=== PATIENT | female | born 1990 | race Caucasian/White ===

== ENCOUNTER 2016-11-30 08:14 | Inpatient (IN) | payer BC ==
[2016-11-30] MEDS ORDERED: Sodium Chloride 0.9% 10 ML Syringe FLUSH PRN (10:03)
[2016-11-30] MEDS ORDERED: Ondansetron 4 MG/2 ML SDV IVPUSH PRN (10:03)
[2016-11-30] MEDS ORDERED: Oxytocin/Lactated Ringers 10 UNIT/1,000 ML BAG IV SCH ×2 (10:15)
[2016-11-30] MEDS: Misoprostol 25 MCG (1/4 of 100 MCG) Tab VAG SCH ×3 (11:05→19:17)
--- NOTE | 2016-11-30 12:05 | US ---
Biophysical profile: Multiple real-time images were obtained transabdominally. Comparison: Previous obstetrical ultrasounds are available, most recent is 07/23/16. Dates: LMP: LMP given as 02/25/16, KYRA 12/01/16, gestational age 39 weeks 6 days Current ultrasound: KYRA 12/10/16, gestational age 38 weeks 4 days Earliest ultrasound (05/07/16): KYRA 11/26/16, gestational age 40 weeks 4 days presentation: Cephalic Placenta: Posterior Amniotic fluid: YOVANI 9.37 cm Measurements: (Measurements felt to be less than optimal in accuracy due to late gestational age) BPD: 9.12 cm - 37 weeks 0 days Head circumference: 33.06 cm - 36 weeks 5 days Abdominal circumference: 37.97 cm - 42 weeks 0 days Femur length: 7.27 cm - 37 weeks 2 days Estimated weight: 3907 g (8 lbs. 10 oz.), estimated weight at the 90th percentile for age by LMP Heart rate: 146 bpm Cervical length: 3.0 cm Growth curves: Growth variable around the mean percentile. Growth is felt to be appropriate from previous exam. Biophysical profile: movement 2, breathing movement 2, tone 0, amniotic fluid 2 Impression: 1. Single intrauterine fetus currently cephalic in presentation. Dates as noted above. Most accurate dates felt to be from earlier ultrasound and LMP. Estimated weight as noted above. 2. growth appropriate from prior exam. 3. 6 out of 8 on biophysical profile. Diagnostic code #5
--- NOTE | 2016-11-30 14:34 | PCM.PREANE ---
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 Respiratory: Reports: no symptoms Cardiovascular: Reports: no symptoms GI: Reports: no symptoms Other: Reports: none - PHYSICAL ASSESSMENT O2 Sat by Pulse Oximetry: 94 RR: 15 Vital Signs: Last Vital Signs Temp 36.8 C 11/30/16 08:43 Pulse 82 11/30/16 08:43 Resp 15 11/30/16 08:43 BP 124/84 11/30/16 08:43 Pulse Ox 94 L 11/30/16 08:43 Height: 1.57 m Weight: 93.44 kg NPO Status Date: 11/30/16 NPO Status Time: 12:00 Mental Status: alert & oriented x3 Airway Class: Mallampati = 1 Dentition: Reports: normal dentition Thyro-Mental Finger Breadths: 3 Mouth Opening Finger Breadths: 3 ROM/Head Extension: full Respiratory Status: lungs clear to auscultation bilaterally Cardiovascular Status: regular rate & rhythm, normal S1, S2, no murmur, blood pressure WNL - LAB Values: Laboratory Last Values WBC 9.91 K/mm3 (3.98-10.04) 11/30/16 10:36 RBC 4.30 M/mm3 (3.98-5.22) 11/30/16 10:36 Hgb 12.2 gm/L (11.2-15.7) 11/30/16 10:36 Hct 37.4 % (34.1-44.9) 11/30/16 10:36 MCV 87.0 fl (79.4-94.8) 11/30/16 10:36 MCH 28.4 pg (25.6-32.2) 11/30/16 10:36 MCHC 32.6 g/dl (32.2-35.5) 11/30/16 10:36 RDW Std Deviation 49.0 fL (36.4-46.3) H 11/30/16 10:36 Plt Count 223 K/mm3 (182-369) 11/30/16 10:36 MPV 10.8 fl (9.4-12.3) 11/30/16 10:36 Neut % (Auto) 63.7 % (34.0-71.1) 11/30/16 10:36 Lymph % (Auto) 24.9 % (19.3-51.7) 11/30/16 10:36 [place] % (Auto) 10.0 % (4.7-12.5) 11/30/16 10:36 Eos % (Auto) 0.9 (0.7-5.8) 11/30/16 10:36 Baso % (Auto) 0.2 % (0.1-1.2) 11/30/16 10:36 Neut # 6.31 K/mm3 (1.56-6.13) H 11/30/16 10:36 Lymph # 2.47 K/mm3 (1.18-3.74) 11/30/16 10:36 [place] # 0.99 K/mm3 (0.24-0.36) H 11/30/16 10:36 Eos # 0.09 K/mm3 (0.04-0.36) 11/30/16 10:36 Baso # 0.02 K/mm3 (0.01-0.08) 11/30/16 10:36 - ALLERGIES Allergies/Adverse Reactions: Allergies Allergy/AdvReac Type Severity Reaction Status Date / Time loratadine [From Claritin] Allergy Swelling Verified 11/30/16 08:42 Penicillins Allergy Rash Verified 11/30/16 08:42 - BLOOD Blood Available: No Product(s) Available: None - ANESTHESIA PLAN Preop Beta Kisha: No Anesthesia Type Planned: epidural - ACKNOWLEDGEMENTS Pt an appropriate candidate for the planned anesthesia: Yes Alternatives and risks of anesthesia discussed w pt/guardian: Yes Pt/Guardian understands and agree with anesthesia plan: Yes PreAnesthesia Questionnaire - Past Health History Medical/Surgical History: Denies 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 Smoking Status *Q: Never Smoker Tobacco Use Within Last Twelve Months: No Recreational Drug Use History: No - HOME MEDS Home Medications: Home Meds Cetirizine HCl [Zyrtec] 10 mg PO DAILY 11/30/16 [History] Pnv No.122/Iron/Folic Acid [ Multi Tablet] 1 tab PO DAILY 11/30/16 [ History] - CURRENT (IN HOUSE) MEDS Current Meds: Current Medications Lactated Ringer's (Ringers, Lactated) 1,000 mls @ 100 mls/hr IV ASDIRECTED WON Oxytocin/Lactated Ringer's (Pitocin In Lr 10 Units/1,000 Ml) 10 unit in 1,000 mls @ 500 mls/hr IV TITRATE WON PRN Reason: Protocol Oxytocin/Lactated Ringer's (Pitocin In Lr 10 Units/1,000 Ml) 10 unit in 1,000 mls @ 12 mls/hr IV TITRATE WON; 2 MUNITS/MIN PRN Reason: Protocol Misoprostol (Cytotec) 25 mcg VAG Q4H WON Last Admin: 11/30/16 11:05 Dose: 25 mcg Ondansetron HCl (Zofran) 4 mg IVPUSH Q4H PRN PRN Reason: Nausea/Vomiting Sodium Chloride (Saline Flush) 10 ml FLUSH ASDIRECTED PRN PRN Reason: Keep Vein Open
--- NOTE | 2016-11-30 17:10 | PCM.LDHP ---
L&D History of Present Illness - General Date of Service: 11/30/16 Admit Problem/Dx: Patient Status Order with Admit Dx/Problem 11/30/16 08:43 Patient Status [ADT] Routine Patient Status: Refer to Observation Admission Diagnosis/Problem: Reason for Admit: induction of labor Nurse Unit Type: Labor and Delivery Admitting Physician: Alec Burleson Attending Physician: Alec Burleson Admission Diagnosis/Problem Admission Diagnosis/Problem Source of Information: Patient History Limitations: Reports: No limitations - History of Present Illness Introduction:: 25-year-old, G1, P0000, KYRA November 29, 2016 estimated gestational age 40 weeks one day presented to labor and delivery having fallen on the ice and hit her tailbone. No severe pain. Patient was scheduled for induction on Tuesday , December 01/2017 will begin induction. Today. Group B strep is negative. Blood type O positive, antibody screen negative, negative, GC and Chlamydia negative, Pap test, immune, rubella titer nonreactive, serology negative, hepatitis B surface antigen, and HIV at 28 weeks one hour OB glucose screen 80. Hemoglobin Vicryl. 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 Para: 0 (0000) Social & Family History - Family History Family Medical History: Noncontributory - Tobacco Use Smoking Status *Q: Never Smoker - Caffeine Use Caffeine Use: Reports: Soda - Recreational Drug Use Recreational Drug Use: No H&P Review of Systems - Review of Systems: Review Of Systems: See Below General: Reports: no symptoms HEENT: Reports: no symptoms Pulmonary: Reports: no symptoms Cardiovascular: Reports: no symptoms Gastrointestinal: Reports: No symptoms Genitourinary: Reports: no symptoms Musculoskeletal: Reports: no symptoms Skin: Reports: no symptoms Psychiatric: Reports: no symptoms Neurological: Reports: no symptoms Hematologic/Lymphatic: Reports: no symptoms Immunologic: Reports: no symptoms L&D Exam - Exam Exam: See Below - Vital Signs Vital Signs: Last Vital Signs Temp 98.3 F 11/30/16 08:43 Pulse 82 11/30/16 08:43 Resp 15 11/30/16 14:34 BP 124/84 11/30/16 08:43 Pulse Ox 94 L 11/30/16 14:34 Weight: 206 lb - OB Specific Fundal Height in cm: 38 Contraction Intensity: Mild movement: active heart tones: present heart tones per min: 140 Heart Rate (FHR) Variability: Moderate (6-25 bmp) Presentation: Vertex - Ackerman Score Ackerman Score Cervix Position: Posterior Ackerman Score Consistency: Soft Ackerman Score Effacement: 0-30% Ackerman Score Dilation: Closed Ackerman Score 's Station: -3 Ackerman Score Total: 2 - Exam General: alert, oriented HEENT: Mucosa moist & pink Neck: supple, trachea midline Lungs: Clear to auscultation, Normal respiratory effort Cardiovascular: regular rate, regular rhythm Abdomen: normal bowel sounds, soft Genitourinary: Normal external exam Back Exam: normal inspection, full range of motion Extremities: normal inspection Skin: warm, dry Psychiatric: alert, normal affect, normal mood - Patient Data Lab Results last 24 hrs: Laboratory Results - last 24 hr 11/30/16 Range/Units 10:36 WBC 9.91 (3.98-10.04) K/mm3 RBC 4.30 (3.98-5.22) M/mm3 Hgb 12.2 (11.2-15.7) gm/L Hct 37.4 (34.1-44.9) % MCV 87.0 (79.4-94.8) fl MCH 28.4 (25.6-32.2) pg MCHC 32.6 (32.2-35.5) g/dl RDW Std Deviation 49.0 H (36.4-46.3) fL Plt Count 223 (182-369) K/mm3 MPV 10.8 (9.4-12.3) fl Neut % (Auto) 63.7 (34.0-71.1) % Lymph % (Auto) 24.9 (19.3-51.7) % [place] % (Auto) 10.0 (4.7-12.5) % Eos % (Auto) 0.9 (0.7-5.8) Baso % (Auto) 0.2 (0.1-1.2) % Neut # 6.31 H (1.56-6.13) K/mm3 Lymph # 2.47 (1.18-3.74) K/mm3 [place] # 0.99 H (0.24-0.36) K/mm3 Eos # 0.09 (0.04-0.36) K/mm3 Baso # 0.02 (0.01-0.08) K/mm3 Result Diagrams: 11/30/16 10:36 - Problem List (1) 40 weeks gestation of SNOMED Code(s): 11435761 ICD Code: Z3A.40 - 40 WEEKS GESTATION OF Status: Acute Current Visit: Yes (2) Fall due to ice or snow SNOMED Code(s): 351179597 ICD Code: W00.9XXA - UNSPECIFIED FALL DUE TO ICE AND SNOW, INITIAL ENCOUNTER Status: Acute Current Visit: Yes Qualifiers: Encounter type: initial encounter Qualified Code(s): W00.9XXA - Unspecified fall due to ice and snow, initial encounter (3) Macrosomia affecting management of mother in third trimester, single gestation SNOMED Code(s): 93722796, 22767773, 344659661 ICD Code: O36.63X0 - MATERNAL CARE FOR EXCESS GROWTH, THIRD TRIMESTER, UNSP Status: Acute Current Visit: Yes Problem List Initiated/Reviewed/Updated: No Orders Last 24hrs: Active Orders 24 hr Category Date Time Status Patient Status [ADT] Routine ADT 11/30/16 08:43 Active Activity as Tolerated [RC] PFP Care 11/30/16 10:04 Active Communication Order [RC] ASDIRECTED Care 11/30/16 10:04 Active Notify Provider [RC] PFP Care 11/30/16 10:04 Active Notify Provider [RC] PRN Care 11/30/16 10:04 Active Peripheral IV Care [RC] . DIRECTED Care 11/30/16 10:04 Active Vital Signs [RC] 04,12,20 Care 11/30/16 10:04 Active Regular Diet [DIET] Diet 11/30/16 Lunch Active TYPE AND SCREEN [BBK] Routine Lab 11/30/16 17:02 Ordered Lactated Ringers [Ringers, Lactated] 1,000 ml Med 11/30/16 10:15 Active IV ASDIRECTED Misoprostol [Cytotec] Med 11/30/16 11:00 Active 25 mcg VAG Q4H Misoprostol [Cytotec] Med 11/30/16 23:00 Ordered 25 mcg VAG Q4H Ondansetron [Zofran] Med 11/30/16 10:03 Active 4 mg IVPUSH Q4H PRN Oxytocin/Lactated Ringers [Pitocin in LR 10 Units/1,000 Med 11/30/16 10:15 Active ML] 10 unit in 1,000 ml IV TITRATE Oxytocin/Lactated Ringers [Pitocin in LR 10 Units/1,000 Med 11/30/16 10:15 Active ML] 10 unit in 1,000 ml IV TITRATE Sodium Chloride 0.9% [Saline Flush] Med 11/30/16 10:03 Active 10 ml FLUSH ASDIRECTED PRN hydrOXYzine HCl [Atarax] Med 11/30/16 21:00 Ordered 50 mg PO BEDTIME Electronic Heart Tones Ext w TOCO [WOMSER] Oth 11/30/16 10:04 Ordered Routine Electronic Heart Tones Internal [WOMSER] Per Unit Ot 11/30/16 10:04 Ordered Routine Peripheral IV Insertion Adult [OM.PC] Routine Oth 11/30/16 10:04 Ordered Resuscitation Status Routine Resus Stat 11/30/16 08:42 Ordered Medication Orders Hydroxyzine HCl (Atarax) 50 mg PO BEDTIME WON Lactated Ringer's (Ringers, Lactated) 1,000 mls @ 100 mls/hr IV ASDIRECTED WON Oxytocin/Lactated Ringer's (Pitocin In Lr 10 Units/1,000 Ml) 10 unit in 1,000 mls @ 500 mls/hr IV TITRATE WON PRN Reason: Protocol Oxytocin/Lactated Ringer's (Pitocin In Lr 10 Units/1,000 Ml) 10 unit in 1,000 mls @ 12 mls/hr IV TITRATE WON; 2 MUNITS/MIN PRN Reason: Protocol Misoprostol (Cytotec) 25 mcg VAG Q4H WON Last Admin: 11/30/16 15:15 Dose: 25 mcg Admin: 11/30/16 11:05 Dose: 25 mcg Misoprostol (Cytotec) 25 mcg VAG Q4H WON Stop: 12/01/16 03:01 Ondansetron HCl (Zofran) 4 mg IVPUSH Q4H PRN PRN Reason: Nausea/Vomiting Sodium Chloride (Saline Flush) 10 ml FLUSH ASDIRECTED PRN PRN Reason: Keep Vein Open Assessment/Plan Comment:: Admit for induction of labor, large, baby I talked with the patient and and both understand possibility because of large baby, but trial of labor indicated. At present time Biophysical profile scoring 6/8, and 8, weight 8 pounds, 10 ounces, amniotic fluid index 9. Nonstress test reactive . Total 05/12
[2016-11-30] MEDS ORDERED: hydrOXYzine HCl 50 MG Tab PO SCH (21:00)
[2016-12-01] MEDS: Misoprostol 25 MCG (1/4 of 100 MCG) Tab VAG SCH ×2 (02:11→04:42)
[2016-12-01] MEDS ORDERED: Misoprostol 25 MCG (1/4 of 100 MCG) Tab ONE (07:39)
[2016-12-01] MEDS ORDERED: Misoprostol 25 MCG (1/4 of 100 MCG) Tab VAG ONE (07:40)
[2016-12-01] MEDS ORDERED: Nalbuphine 20 MG/1 ML Amp ONE (07:49)
[2016-12-01] MEDS ORDERED: Nalbuphine 20 MG/1 ML Amp IVPUSH PRN (08:00)
--- NOTE | 2016-12-01 08:02 | PCM.SN ---
- Free Text/Narrative Note: Cervic closed, 20%, soft, posterior, vertex minus 3 to floating EFW 8#10 oz on BPP yesterday. Cytotec [address] cervix at 0740. Oxytocin will be started in 3 hours. Discussed large fetus and possible section
[2016-12-01] MEDS: Lactated Ringers 1,000 ML IV SCH ×3 (10:40→18:03)
[2016-12-01] MEDS ORDERED: ceFAZolin 2 GM in Premix Bag 1 BAG IV ONE (12:57)
--- NOTE | 2016-12-01 13:01 | PCM.SN ---
- Free Text/Narrative Note: minimal change in cervix 1 cm, 40%, soft, posterior, floating occiput posterior by bedside USG. discussed options. Cat I FHR. Continue pitocin, if no significant change in cervix will perform section (discussed continuing pitocin, dismiss and re-induce in a few day-baby would not be smaller , and section) EFW by USG 8#10 oz, OP as noted by bedside USG and unengaged head at term.
--- NOTE | 2016-12-01 13:05 | PCM.SN ---
- Free Text/Narrative Note: Suspected spontaneous rupture of membranes at 1300 gush of fluid
[2016-12-01] MEDS ORDERED: diphenhydrAMINE 50 MG/ML SDV IVPUSH PRN ×3 (13:34→19:52)
[2016-12-01] MEDS ORDERED: fentaNYL 100 MCG/2 ML SDV EPIDUR PRN (13:34)
[2016-12-01] MEDS ORDERED: ePHEDrine 50 MG/ML SDV IVPUSH PRN ×2 (13:34→19:52)
[2016-12-01] MEDS ORDERED: fentaNYL 100 MCG/2 ML SDV ONE ×2 (13:41→15:57)
[2016-12-01] MEDS ORDERED: Bupivacaine/fentaNYL/NS 100 ML Bag EPIDUR SCH (13:45)
[2016-12-01] MEDS ORDERED: ceFAZolin 1 GM Vial ONE (15:57)
[2016-12-01] MEDS ORDERED: Lidocaine 2% with EPINEPHrine 1:200,000 20 ML SDV ONE (15:57)
[2016-12-01] MEDS ORDERED: Morphine PF 10 MG/10 ML SDV ONE (15:57)
[2016-12-01] MEDS ORDERED: Ondansetron 4 MG/2 ML SDV ONE (15:57)
[2016-12-01] MEDS ORDERED: Lactated Ringers 1,000 ML ONE (15:57)
[2016-12-01] MEDS ORDERED: Ketorolac 30 MG/ML SDV ONE (15:57)
[2016-12-01] MEDS ORDERED: Oxytocin 10 Units/1 ML SDV ONE (15:57)
[2016-12-01] MEDS ORDERED: Phenylephrine/Normal Saline 100 MCG/ML 10 ML Syringe ONE (15:58)
[2016-12-01] MEDS ORDERED: Metoclopramide 10 MG/2 ML SDV IVPUSH ONE (16:00)
[2016-12-01] MEDS ORDERED: Citric Acid/Sodium Citrate Solution 30 ML Cup PO ONE (16:00)
--- NOTE | 2016-12-01 16:14 | PCM.SN ---
- Free Text/Narrative Note: Cervix 1 cm, 60, soft, posterior, vertex-3 OP after dicussion with family on options will proceed with section
[2016-12-01] MEDS ORDERED: Bupivacaine 0.5% 30 ML SDV ONE (18:08)
--- NOTE | 2016-12-01 19:26 | PCM.POSTAN ---
POST ANESTHESIA ASSESSMENT - MENTAL STATUS Mental Status: alert, oriented - VITAL SIGNS Pulse Rate: 88 SaO2: 96 Resp Rate: 20 Blood Pressure: 90/44 Temperature: 98.4 C - RESPIRATORY Respiratory Status: respiratory rate WNL, airway patent, O2 saturation stable - CARDIOVASCULAR CV Status: pulse rate WNL, blood pressure stable - GASTROINTESTINAL GI Status: no symptoms - POST OP HYDRATION Hydration Status: adequate & stable (uneventful c/s )
--- NOTE | 2016-12-01 19:30 | PCM.OPNOTE ---
- General Post-Op/Procedure Note Date of Surgery/Procedure: 12/01/16 Operative Procedure(s): Low segment transverse [id number] Pre Op Diagnosis: 40 weeks gestation, macrosomia, persistent occiput posterior Post-Op Diagnosis: Same Anesthesia Technique: Epidural Primary Surgeon: Alec Burleson Secondary Surgeon: Be Martin Anesthesia Provider: Evgeny Duffy Enterprise Systems Manager: Joann Mendiola Fluid Replacement, Intraop: 1,000 Output, Urine Amount: 750 EBL in mLs: 700 Drain/Tube Comments:: Lezama Complications: None Condition: Good Free Text/Narrative:: Intake & Output 12/01/16 12/01/16 12/01/16 06:59 14:59 22:59 Intake Total 2300 Balance 2300 Patient transported to operating room #1 and placed under epidural anesthesia in the supine position with wedge of right hip and right flank. Prepared and draped in sterile fashion. Timeout performed confirming name, date of , and procedure as section. Adequate level of anesthesia was confirmed. Patient's brought to the operating room. SCDs had been in place and functioning, and received 2 g of intravenous Ancef prior to the procedure. A Pfannenstiel incision was made and carried sharp section to into the anterior fascia. Pertinent cavity entered without difficulty. Bladder flap created pushed caudad and a low segment transverse performed, delivering a female live born at 1850 hours on Tuesday, weighing 8 pounds, 10 ounces, Apgars 7/9. Dr. elias. Volunteer Services Assistant in attendance. Routine cord blood collected. Placenta removed manually, at 1851 hours, intact, discarded in nature cavity inspected. Sponge, needle, pack, and splint sharp count correct, times one. The uterine incision closed in 2 layers, first layer running, locking suture of 0 Monocryl. Second layer horizontal imbricating suture of the modified Lembert type. Additional [id number]-[id number], x2. Place. Right side of the incision for hemostasis. Both tubes and ovaries were normal. Clots are cleaned from the gutters and cul-de-sac. Uterus replaced into the abdominal cavity. Inspection of the incision showed no bleeding. Sponge, needle, pack, and sharp count correct, x2 in the abdominal cavity was closed #1 PDS for the anterior fascia. Irrigation carried out, cutaneous tissue, and the subcuticular closure of the skin incision with 3-0 Monocryl. Manuel needle, and Dermabond perinio, placed over the incision. Clots cleaned from the vagina at the procedure patient transported post anesthesia care unit in satisfactory condition. No blood transfusions, required
[2016-12-01] MEDS ORDERED: Acetaminophen/oxyCODONE 325-5 MG Tab PO PRN (19:52)
[2016-12-01] MEDS ORDERED: Dextrose 5%-0.45% NaCl 1,000 ML IV SCH (19:52)
[2016-12-01] MEDS ORDERED: Dextrose 5%-Lactated Ringers 1,000 ML IV SCH (19:52)
[2016-12-01] MEDS ORDERED: Ondansetron 4 MG/2 ML SDV IV PRN (19:52)
[2016-12-01] MEDS ORDERED: Sodium Chloride 0.9% 10 ML Syringe FLUSH PRN (19:52)
[2016-12-01] MEDS ORDERED: Naloxone 0.4 MG/ML SDV IVPUSH PRN (19:52)
[2016-12-01] MEDS ORDERED: Docusate Sodium 100 MG Cap PO PRN (19:52)
[2016-12-01] MEDS ORDERED: Ibuprofen 600 MG Tab PO PRN (19:52)
[2016-12-01] MEDS ORDERED: Acetaminophen 325 MG Tab PO PRN (19:52)
[2016-12-01] MEDS ORDERED: Lanolin 100% Cream 7 GM Tube TOP PRN (19:52)
[2016-12-02] MEDS: Ketorolac 30 MG/ML SDV IVPUSH SCH ×3 (01:15→13:00)
--- NOTE | 2016-12-02 07:43 | PCM.SN ---
- Free Text/Narrative Note: POD#1 Afebrile, breast feeding, incision normal, no heavy vaginal bleeding, no leg cramping.
[2016-12-02] MEDS ORDERED: CETIRIZINE 10 MG PO SCH (09:00)
[2016-12-02] MEDS: Prenatal Multivitamin with Calcium/Folic Acid/Iron Tab PO SCH (12:59)
[2016-12-03 04:17] VITALS: BP 121/76
[2016-12-03] MEDS: Prenatal Multivitamin with Calcium/Folic Acid/Iron Tab PO SCH (08:22)
--- NOTE | 2016-12-03 08:50 | PCM.DCSUM1 ---
Discharge Summary - Hospital Course Free Text/Narrative:: [facility] Post-Op/Procedure Note Patient Name: BEENA HOYT Date of : 88 Patient Status: Inpatient Attending Provider: Alec Burleson Date: 12/01/16 19:25 Initialization Date: 12/01/16 19:25 - General Post-Op/Procedure Note Date of Surgery/Procedure: 12/01/16 Operative Procedure(s): Low segment transverse [id number]-gtpkdqi Pre Op Diagnosis: 40 weeks gestation, macrosomia, persistent occiput posterior Post-Op Diagnosis: Same Anesthesia Technique: Epidural Primary Surgeon: Alec Burleson Secondary Surgeon: Be Martin Anesthesia Provider: Evgeny Duffy Wedding Cake Designer: Joann Mendiola Fluid Replacement, Intraop: 1,000 Output, Urine Amount: 750 EBL in mLs: 700 Drain/Tube Comments:: Lezama Complications: None Condition: Good Free Text/Narrative:: Intake & Output 12/01/16 12/01/16 12/01/16 06:59 14:59 22:59 Intake Total 2300 Balance 2300 Patient transported to operating room #1 and placed under epidural anesthesia in the supine position with wedge of right hip and right flank. Prepared and draped in sterile fashion. Timeout performed confirming name, date of , and procedure as section. Adequate level of anesthesia was confirmed. Patient's brought to the operating room. SCDs had been in place and functioning, and received 2 g of intravenous Ancef prior to the procedure. A Pfannenstiel incision was made and carried sharp section to into the anterior fascia. Pertinent cavity entered without difficulty. Bladder flap created pushed caudad and a low segment transverse performed, delivering a female live born at 1850 hours on Tuesday, weighing 8 pounds, 10 ounces, Apgars 7/9. Dr. elias. Brake Repairer in attendance. Routine cord blood collected. Placenta removed manually, at 1851 hours, intact, discarded in nature cavity inspected. Sponge, needle, pack, and splint sharp count correct, times one. The uterine incision closed in 2 layers, first layer running, locking suture of 0 Monocryl. Second layer horizontal imbricating suture of the modified Lembert type. Additional gvefrm-kk-gjwki, x2. Place. Right side of the incision for hemostasis. Both tubes and ovaries were normal. Clots are cleaned from the gutters and cul-de-sac. Uterus replaced into the abdominal cavity. Inspection of the incision showed no bleeding. Sponge, needle, pack, and sharp count correct, x2 in the abdominal cavity was closed #1 PDS for the anterior fascia. Irrigation carried out, cutaneous tissue, and the subcuticular closure of the skin incision with 3-0 Monocryl. Manuel needle, and Dermabond perinio, placed over the incision. Clots cleaned from the vagina at the procedure patient transported post anesthesia care unit in satisfactory condition. No blood transfusions, required HPI Initial Comments: [facility] Post-Op/Procedure Note Patient Name: BEENA HOYT Date of : 88 Patient Status: Inpatient Attending Provider: Alec Burleson Date: 12/01/16 19:25 Initialization Date: 12/01/16 19:25 - General Post-Op/Procedure Note Date of Surgery/Procedure: 12/01/16 Operative Procedure(s): Low segment transverse R-ygkpgbe-wochmoc Pre Op Diagnosis: 40 weeks gestation, macrosomia, persistent occiput posterior Post-Op Diagnosis: Same Anesthesia Technique: Epidural Primary Surgeon: Alec Burleson Secondary Surgeon: Be Martin Anesthesia Provider: Evgeny Duffy Wedding Cake Designer: Joann Mendiola Fluid Replacement, Intraop: 1,000 Output, Urine Amount: 750 EBL in mLs: 700 Drain/Tube Comments:: Lezama Complications: None Condition: Good Free Text/Narrative:: Intake & Output 12/01/16 12/01/16 12/01/16 06:59 14:59 22:59 Intake Total 2300 Balance 2300 Patient transported to operating room #1 and placed under epidural anesthesia in the supine position with wedge of right hip and right flank. Prepared and draped in sterile fashion. Timeout performed confirming name, date of , and procedure as section. Adequate level of anesthesia was confirmed. Patient's brought to the operating room. SCDs had been in place and functioning, and received 2 g of intravenous Ancef prior to the procedure. A Pfannenstiel incision was made and carried sharp section to into the anterior fascia. Pertinent cavity entered without difficulty. Bladder flap created pushed caudad and a low segment transverse performed, delivering a female live born at 1850 hours on Tuesday, weighing 8 pounds, 10 ounces, Apgars 7/9. Dr. elias. Brake Repairer in attendance. Routine cord blood collected. Placenta removed manually, at 1851 hours, intact, discarded in nature cavity inspected. Sponge, needle, pack, and splint sharp count correct, times one. The uterine incision closed in 2 layers, first layer running, locking suture of 0 Monocryl. Second layer horizontal imbricating suture of the modified Lembert type. Additional ljgdgq-nm-tinfa, x2. Place. Right side of the incision for hemostasis. Both tubes and ovaries were normal. Clots are cleaned from the gutters and cul-de-sac. Uterus replaced into the abdominal cavity. Inspection of the incision showed no bleeding. Sponge, needle, pack, and sharp count correct, x2 in the abdominal cavity was closed #1 PDS for the anterior fascia. Irrigation carried out, cutaneous tissue, and the subcuticular closure of the skin incision with 3-0 Monocryl. Manuel needle, and Dermabond perinio, placed over the incision. Clots cleaned from the vagina at the procedure patient transported post anesthesia care unit in satisfactory condition. No blood transfusions, required Brief History: [facility] . Post-Op/Procedure Note. Patient Name: BEENA HOYT [facility] Record Number: [id number]. Date of : Patient Status: Inpatient. Attending Provider: Alec Burlesonount Number: [id number]. Date: 12/01/16 19:25Initialization Date: 12/01/16 19:25. - General Post-Op/Procedure Note. Date of Surgery/Procedure: 12/01/16. Operative Procedure(s): Low segment transverse D-puozifq-qeyylhg. Pre Op Diagnosis: 40 weeks gestation, macrosomia, persistent occiput posterior. Post- Op Diagnosis: Same. Anesthesia Technique: Epidural. Primary Surgeon: Alec Burleson. Secondary Surgeon: Be Martin. Anesthesia Provider: Evgeny Duffy. Wedding Cake Designer: Joann Mendiola. Fluid Replacement, Intraop: 1,000. Output, Urine Amount: 750. EBL in mLs: 700. Drain/Tube Comments:: Lezama. Complications: None. Condition: Good. Free Text/Narrative:: Intake & Output. 12/01/170210/1702. 06:5914:5922:59. Intake [id number]. [id number]. Patient transported to operating room #1 and placed under epidural anesthesia in the supine position with wedge of right hip and right flank. Prepared and draped in sterile fashion. Timeout performed confirming name, date of , and procedure as section. Adequate level of anesthesia was confirmed. Patient's brought to the operating room. SCDs had been in place and functioning, and received 2 g of intravenous Ancef prior to the procedure. A Pfannenstiel incision was made and carried sharp section to into the anterior fascia. Pertinent cavity entered without difficulty. Bladder flap created pushed caudad and a low segment transverse performed, delivering a female live born at 1850 hours on Tuesday, weighing 8 pounds, 10 ounces, Apgars 7/9. Dr. elias. Brake Repairer in attendance. Routine cord blood collected. Placenta removed manually, at 1851 hours, intact, discarded in nature cavity inspected. Sponge, needle, pack, and splint sharp count correct, times one. The uterine incision closed in 2 layers, first layer running, locking suture of 0 Monocryl. Second layer horizontal imbricating suture of the modified Lembert type. Additional mmhfxl-pw-hdxqe, x2. Place. Right side of the incision for hemostasis. Both tubes and ovaries were normal. Clots are cleaned from the gutters and cul-de-sac. Uterus replaced into the abdominal cavity. Inspection of the incision showed no bleeding. Sponge, needle, pack, and sharp count correct, x2 in the abdominal cavity was closed #1 PDS for the anterior fascia. Irrigation carried out, cutaneous tissue, and the subcuticular closure of the skin incision with 3-0 Monocryl. Manuel needle, and Dermabond perinio, placed over the incision. Clots cleaned from the vagina at the procedure patient transported post anesthesia care unit in satisfactory condition. No blood transfusions, required - Discharge Data Discharge Date: 12/03/16 Discharge Disposition: Home, Self-Care 01 Condition: Good - Discharge Diagnosis/Problem(s) (1) 40 weeks gestation of SNOMED Code(s): 22942118 ICD Code: Z3A.40 - 40 WEEKS GESTATION OF Status: Acute Current Visit: Yes (2) Fall due to ice or snow SNOMED Code(s): 040533073 ICD Code: W00.9XXA - UNSPECIFIED FALL DUE TO ICE AND SNOW, INITIAL ENCOUNTER Status: Acute Current Visit: Yes Qualifiers: Encounter type: initial encounter Qualified Code(s): W00.9XXA - Unspecified fall due to ice and snow, initial encounter (3) Macrosomia affecting management of mother in third trimester, single gestation SNOMED Code(s): 31513252, 61360178, 567187607 ICD Code: O36.63X0 - MATERNAL CARE FOR EXCESS GROWTH, THIRD TRIMESTER, UNSP Status: Acute Current Visit: Yes - Patient Summary/Data Operative Procedure(s) Performed: Low segment transverse Y-ueuvywh-ljknbwv Complications: none Consults: none Hospital Course: uneventful - Patient Instructions Diet: Heart Healthy Diet Driving: Do Not Drive (x4 weeks) Showering/Bathing: May Shower, No Tub Bathing/Swimming (x6 weeks) Wound/Incision Care: Keep Operative Site/Wound Site Clean and Dry Notify Provider of: Fever, Increased Pain, Swelling and Redness, Drainage, Nausea and/or Vomiting - Discharge Plan Home Medications: Home Meds Cetirizine HCl [Zyrtec] 10 mg PO DAILY 11/30/16 [History] Pnv No.122/Iron/Folic Acid [ Multi Tablet] 1 tab PO DAILY 11/30/16 [ History] Acetaminophen [Tylenol] 650 mg PO Q6H PRN #0 tablet 12/03/16 [Rx] Docusate Sodium [Colace] 100 mg PO Q12H PRN #0 cap 12/03/16 [Rx] Ibuprofen [IJD: Ibuprofen] 600 mg PO Q6H PRN #0 tablet 12/03/16 [Rx] Patient Handouts: Smokeless Tobacco Use - Discharge Summary/Plan Comment DC Time >30 min.: No - Patient Data Vitals - Most Recent: Last Vital Signs Temp 97.9 F 12/03/16 03:38 Pulse 91 12/03/16 03:38 Resp 16 12/03/16 03:38 BP 121/76 12/03/16 03:38 Pulse Ox 95 12/03/16 03:38 Weight - Most Recent: 206 lb I&O - Last 24 hours: Intake & Output 12/02/16 12/03/16 12/03/16 22:59 06:59 14:59 Intake Total 800 Balance 800 Med Orders - Current: Current Medications Acetaminophen (Tylenol) 650 mg PO Q4H PRN PRN Reason: mild pain or fever Diphenhydramine HCl (Benadryl) 25 mg IVPUSH Q6H PRN PRN Reason: Itching or Nausea Last Admin: 12/01/16 22:41 Dose: 25 mg Docusate Sodium (Colace) 100 mg PO Q12H PRN PRN Reason: Constipation Last Admin: 12/02/16 06:38 Dose: 100 mg Emollient Ointment (Lansinoh Hpa) 0 gm TOP ASDIRECTED PRN PRN Reason: Sore Nipples Ephedrine Sulfate (Ephedrine Sulfate) 5 mg IVPUSH SEECOMMENT PRN PRN Reason: Other Dextrose/Sodium Chloride (Dextrose 5%-1/2 Ns) 1,000 mls @ 125 mls/hr IV ASDIRECTED [facility] Last Admin: 12/02/16 05:21 Dose: 125 mls/hr Ibuprofen (Motrin) 600 mg PO Q6H PRN PRN Reason: mild pain or fever Last Admin: 12/03/16 03:33 Dose: 600 mg Naloxone HCl (Narcan) 0.1 mg IVPUSH SEECOMMENT PRN PRN Reason: Respiratory Depression Ondansetron HCl (Zofran) 4 mg IV Q8H PRN PRN Reason: Nausea/Vomiting Oxycodone/Acetaminophen (Percocet 325-5 Mg) 2 tab PO Q4H PRN PRN Reason: Pain (moderate 4-6) Cetirizine 10 Mg 0 each PO DAILY [facility] Last Admin: 12/02/16 13:06 Dose: Not Given Prenat Multivit/Food Prep Worker/Iron/Folic Ac ( Plus Iron) 1 each PO DAILY [facility] Last Admin: 12/03/16 08:22 Dose: 1 each Sodium Chloride (Saline Flush) 10 ml FLUSH ASDIRECTED PRN PRN Reason: Keep Vein Open Discontinued Medications Bupivacaine HCl (Marcaine 0.5%) Confirm Administered Dose 30 ml .ROUTE .[facility] ONE Stop: 12/01/16 18:09 Last Admin: 12/01/16 18:47 Dose: 20 ml Cefazolin Sodium (Ancef) Confirm Administered Dose 2 gm .ROUTE .[facility] ONE Stop: 12/01/16 15:58 Citric Acid/Sodium Citrate (Bicitra Solution) 30 ml PO ONETIME ONE Stop: 12/01/16 16:01 Last Admin: 12/01/16 18:03 Dose: 30 ml Diphenhydramine HCl (Benadryl) 25 mg IVPUSH Q6H PRN PRN Reason: pruritis Diphenhydramine HCl (Benadryl) 25 mg IVPUSH Q6H PRN PRN Reason: pruritis Ephedrine Sulfate (Ephedrine Sulfate) 5 mg IVPUSH ASDIRECTED PRN PRN Reason: Hypotension Fentanyl (Sublimaze) 100 mcg EPIDUR Q3H PRN PRN Reason: Pain Fentanyl (Sublimaze) Confirm Administered Dose 100 mcg .ROUTE .[facility] ONE Stop: 12/01/16 13:42 Last Admin: 12/01/16 14:12 Dose: 100 mcg Fentanyl (Sublimaze) Confirm Administered Dose 100 mcg .ROUTE .[facility] ONE Stop: 12/01/16 15:58 Fentanyl/Bupivacaine HCl (Fentanyl/Bupivacaine/Ns 2 Mcg-0.125% 100 Ml) 100 ml EPIDUR ASDIRECTED [facility] Last Admin: 12/01/16 14:14 Dose: 100 ml Hydroxyzine HCl (Atarax) 50 mg PO BEDTIME [facility] Last Admin: 12/01/16 02:13 Dose: Not Given Lactated Ringer's (Ringers, Lactated) 1,000 mls @ 100 mls/hr IV ASDIRECTED [facility] Last Admin: 12/01/16 18:03 Dose: 100 mls/hr Oxytocin/Lactated Ringer's (Pitocin In Lr 10 Units/1,000 Ml) 10 unit in 1,000 mls @ 500 mls/hr IV TITRATE [facility] PRN Reason: Protocol Oxytocin/Lactated Ringer's (Pitocin In Lr 10 Units/1,000 Ml) 10 unit in 1,000 mls @ 12 mls/hr IV TITRATE WON; 2 MUNITS/MIN PRN Reason: Protocol Last Titration: 12/01/16 16:15 Dose: 0 munits/min, 0 mls/hr Cefazolin Sodium/Dextrose 2 gm (/ Premix) 50 mls @ 100 mls/hr IV ONETIME ONE Stop: 12/01/16 13:26 Last Admin: 12/01/16 21:40 Dose: Not Given Lactated Ringer's (Ringers, Lactated) Confirm Administered Dose 1,000 mls @ as directed .ROUTE .[facility] ONE Stop: 12/01/16 15:58 Dextrose/Lactated Ringer's (Dextrose 5%-Lactated Ringers) 1,000 mls @ 125 mls/ hr IV ASDIRECTED [facility] Stop: 12/02/16 03:51 Last Admin: 12/01/16 21:30 Dose: 125 mls/hr Ketorolac Tromethamine (Toradol) Confirm Administered Dose 30 mg .ROUTE .STK- MED ONE Stop: 12/01/16 15:58 Ketorolac Tromethamine (Toradol) 30 mg IVPUSH Q6H [facility] Stop: 12/02/16 13:01 Last Admin: 12/02/16 13:00 Dose: 30 mg Lidocaine/Epinephrine (Xylocaine-Mpf 2%-Epi 1:200,000) Confirm Administered Dose 20 ml .ROUTE .STK-MED ONE Stop: 12/01/16 15:58 Metoclopramide HCl (Reglan) 10 mg IVPUSH ONETIME ONE Stop: 12/01/16 16:01 Last Admin: 12/01/16 18:03 Dose: 10 mg Misoprostol (Cytotec) 25 mcg VAG Q4H [facility] Stop: 11/30/16 19:01 Last Admin: 11/30/16 19:17 Dose: 25 mcg Misoprostol (Cytotec) 25 mcg VAG Q4H [facility] Stop: 12/01/16 03:01 Last Admin: 12/01/16 04:42 Dose: Not Given Misoprostol (Cytotec) Confirm Administered Dose 25 mcg .ROUTE .STK-MED ONE Stop: 12/01/16 07:40 Last Admin: 12/01/16 10:37 Dose: Not Given Misoprostol (Cytotec) 25 mcg VAG ONETIME ONE Stop: 12/01/16 07:41 Last Admin: 12/01/16 07:40 Dose: 25 mcg Morphine Sulfate (Duramorph Pf) Confirm Administered Dose 10 mg .ROUTE .STK-MED ONE Stop: 12/01/16 15:58 Nalbuphine HCl (Nubain) Confirm Administered Dose 20 mg .ROUTE .STK-MED ONE Stop: 12/01/16 07:50 Last Admin: 12/01/16 10:42 Dose: Not Given Nalbuphine HCl (Nubain) 10 mg IVPUSH Q2H PRN PRN Reason: Pain Last Admin: 12/01/16 08:00 Dose: 10 mg Ondansetron HCl (Zofran) 4 mg IVPUSH Q4H PRN PRN Reason: Nausea/Vomiting Ondansetron HCl (Zofran) Confirm Administered Dose 4 mg .ROUTE .STK-MED ONE Stop: 12/01/16 15:58 Oxytocin (Pitocin) Confirm Administered Dose 20 unit .ROUTE .STK-MED ONE Stop: 12/01/16 15:58 Phenylephrine HCl (Phenylephrine In Ns 100 Mcg/Ml) Confirm Administered Dose 1 mg .ROUTE .STK-MED ONE Stop: 12/01/16 15:59 Sodium Chloride (Saline Flush) 10 ml FLUSH ASDIRECTED PRN PRN Reason: Keep Vein Open *Q Meaningful Use (DIS) - VTE *Q VTE Criteria *Q: - Stroke *Q Stroke Criteria *Q: - AMI *Q AMI Criteria *Q:
== END 2016-12-03 10:40 | disposition home or self-care (01) | DRG 540 ==
LOC: JD.OBCHECK 08:14 → JD.OB 08:15 → JD.OBCHECK 08:42 → JD.OB 08:43 → OBSVTOIN 12-01 18:50
PROVIDERS: ADMIT Obstetrics & Gynecology; ATTEND Obstetrics & Gynecology
PROC: 10D00Z1 Extraction of Products of Conception, Low, Open Approach (ICD-10-PCS; principal; 2016-12-01)
PROC: 3E0P7GC Introduction of Other Therapeutic Substance into Female Reproductive, Via Natural or Artificial Opening (ICD-10-PCS; 2016-12-01)
PROC: 00HU33Z Insertion of Infusion Device into Spinal Canal, Percutaneous Approach (ICD-10-PCS; 2016-12-01)
PROC: 3E0R3CZ (ICD-10-PCS; 2016-12-01)
DX: O36.62X0 Maternal care for excessive fetal growth, second trimester, not applicable or unspecified (principal); O64.0XX0 Obstructed labor due to incomplete rotation of fetal head, not applicable or unspecified; Z3A.40 40 weeks gestation of pregnancy; Z37.0 Single live birth; W00.9XXA Unspecified fall due to ice and snow, initial encounter; Z88.0 Allergy status to penicillin; Z88.8 Allergy status to other drugs, medicaments and biological substances
CPT/HCPCS: 01967; 01968; 36415; 76816; 76819; 76819-26; 85025; 86850; 86900; 86901; 94762; A9270-GY; J0690; J1200; J1885; J2270; J2300; J2405; J2590; J2765; J3010; J7042; J7120

== ENCOUNTER 2019-11-23 05:31 | Inpatient (IN) | payer BC ==
--- NOTE | 2019-11-20 16:01 | PCM.LDHP ---
L&D History of Present Illness - General Date of Service: 11/20/19 Admit Problem/Dx: Admission Diagnosis/Problem Admission Diagnosis/Problem - History of Present Illness Introduction:: 28-year-old 002 KYRA 11/29/2019 at estimated gestational age of 38 weeks and 5 days patient is scheduled for Tuesday11/23/2019 for repeat section. Patient has history of allergies to penicillin and Claritin but has taken Ancef twice in the past without difficulties for both sections. GBS positive (carrier) Ultrasound today revealed cephalic presentation estimated gestational age 38 weeks and 5 days with KYRA of 12/22/2019 plan repeat section on Tuesday at 39 weeks and 1 day estimated gestational age. Cephalic presentation anterior placenta and no previa, YOVANI 9.7 cm. Estimated weight 4136 g 9 lbs. 2 oz. 96 percentile. heart tones 1 30 bpm. Cervix 5.8 cm. 05/08/2019 blood type O-positive, antibody screen negative, hemoglobin/hematocrit 14.0/40.0 platelets 295,000. Rubella titer indicates immunity. Serology nonreactive. Initial urine culture mixed pepito suggestive of contamination. Hepatitis B surface antigen and HIV negative. Last menstrual period KYRA 02/22/19 initial ultrasound at 12 weeks 1 day KYRA of 11/25/18 Chlamydia and gonorrhea probe negative. Ultrasound 07/19/19 at 21 weeks 3 days estimated gestational age KYRA 11/26/2019 mobile presentation anterior placenta and no previa YOVANI 13.77 three-vessel cord estimated weight 414 g/0 lbs. 15 oz. 38 percentile heart rate 142 cervix 3.7 cm 09/27/19 hemoglobin/hematocrit 11.8/35.4 platelets 281,000, 1 hour OB glucose screen 91 RPR nonreactive GBS screen 10/31/19 positive Patient has been instructed to remain nothing by mouth after midnight 2019. Report to ER and then to L&D at 0530 hrs. on Tuesday11/23/2019. Wipes and instructions given for pre-op care night before and morning of. Patient also given instructions for wiping down light switches [place]'s handles and commode handles with Clorox cleanup or Clorox wipes. Ration will make appointment to be seen on Tuesday12/11/2019 for postop check. - Related Data Allergies/Adverse Reactions: Allergies Allergy/AdvReac Type Severity Reaction Status Date / Time loratadine [From Claritin] Allergy Swelling Verified 05/10/18 06:41 Penicillins Allergy Rash Verified 05/10/18 06:41 Home Medications: Home Meds Cetirizine HCl [Zyrtec] 10 mg PO DAILY 11/30/16 [History] No122/Iron/Folic Acid [ Multi Tablet] 1 tab PO DAILY 11/30/16 [ History] Acetaminophen [Tylenol] 650 mg PO Q4H PRN tablet 05/12/18 [Rx] Ibuprofen [Motrin 100 MG/5 ML Susp] 200 mg PO Q6H #50 cup 05/12/18 [Rx] Lanolin [Lansinoh HPA] 1 applic TOP ASDIRECTED PRN tube 05/12/18 [Rx] Simethicone 80 mg PO PCBED tab.chew 05/12/18 [Rx] Past Medical History - Past Health History Medical/Surgical History: Denies Medical/Surgical History 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: - Past Surgical History HEENT Surgical History: Reports: Oral Surgery, Tonsillectomy Female Surgical History: Reports: Section Social & Family History - Family History Family Medical History: Noncontributory - Caffeine Use Caffeine Use: Reports: Soda H&P Review of Systems - Review of Systems: Review Of Systems: See Below General: Reports: No Symptoms HEENT: Reports: No Symptoms Pulmonary: Reports: No Symptoms Cardiovascular: Reports: No Symptoms Gastrointestinal: Reports: No Symptoms Genitourinary: Reports: No Symptoms Musculoskeletal: Reports: No Symptoms Skin: Reports: No Symptoms Psychiatric: Reports: No Symptoms Neurological: Reports: No Symptoms Hematologic/Lymphatic: Reports: No Symptoms Immunologic: Reports: No Symptoms L&D Exam - Exam Exam: See Below - OB Specific Fundal Height In cm: 40 Movement: Active Heart Tones: Present Heart Tones per Min: 131 - Exam General: Alert, Oriented HEENT: Conjunctiva Clear, Mucosa Moist & [place] Neck: Supple, Trachea Midline Lungs: Clear to Auscultation, Normal Respiratory Effort Cardiovascular: Regular Rate, Regular Rhythm GI/Abdominal Exam: Normal Bowel Sounds, Soft, Non-Tender Extremities: Normal Inspection, Non-Tender, No Pedal Edema, Normal Capillary Refill Skin: Warm, Dry, Intact Psychiatric: Alert, Normal Affect, Normal Mood - Problem List (1) 39 weeks gestation of SNOMED Code(s): 89825619 ICD Code: Z3A.39 - 39 WEEKS GESTATION OF Status: Acute (2) 38 weeks gestation of SNOMED Code(s): 61810065 ICD Code: Z3A.38 - 38 WEEKS GESTATION OF Status: Acute (3) History of section complicating SNOMED Code(s): 118657751, 217613082 ICD Code: O34.219 - MATERNAL CARE FOR UNSP TYPE SCAR FROM PREVIOUS DEL Status: Acute (4) Group B Streptococcus carrier state affecting SNOMED Code(s): 451084678 ICD Code: O99.820 - STREPTOCOCCUS B CARRIER STATE COMPLICATING Status: Acute (5) History of 2 sections SNOMED Code(s): 856952052 ICD Code: Z98.891 - HISTORY OF UTERINE SCAR FROM PREVIOUS SURGERY Status: Acute (6) macrosomia during in third trimester SNOMED Code(s): 597295033, 006910865 ICD Code: O36.63X0 - MATERNAL CARE FOR EXCESS GROWTH, THIRD TRIMESTER, UNSP Status: Acute Problem List Initiated/Reviewed/Updated: No Assessment/Plan Comment:: Patient seen today in the clinic (11/20/2019Tuesday) at 38 weeks 5 days estimated gestational age. At time of section patient will be 39 weeks and 1 day.
[~2019-11-23 05:31] MED LIST: Oxytocin/Lactated Ringers 20 UNIT/1,000 ML BAG IV SCH
[2019-11-23] MEDS: Lactated Ringers 1,000 ML IV SCH ×2 (06:02→06:33)
[2019-11-23] MEDS ORDERED: Metoclopramide 10 MG/2 ML SDV IVPUSH ONE (06:30)
[2019-11-23] MEDS ORDERED: Citric Acid/Sodium Citrate Solution 30 ML Cup PO ONE (06:30)
[2019-11-23] MEDS ORDERED: Bupivacaine 0.5% 30 ML SDV ONE (06:34)
[2019-11-23] MEDS ORDERED: ceFAZolin 1 GM Vial ONE (06:47)
[2019-11-23] MEDS ORDERED: Ondansetron 4 MG/2 ML SDV ONE (06:47)
[2019-11-23] MEDS ORDERED: Lactated Ringers 2,000 ML ONE (06:47)
[2019-11-23] MEDS ORDERED: Ketorolac 30 MG/ML SDV ONE (06:47)
[2019-11-23] MEDS ORDERED: Oxytocin 10 Units/1 ML SDV ONE (06:47)
[2019-11-23] MEDS ORDERED: Morphine PF 10 MG/10 ML SDV ONE (06:47)
[2019-11-23] MEDS ORDERED: ceFAZolin 2 GM in Premix Bag 1 BAG IV ONE (07:00)
--- NOTE | 2019-11-23 07:11 | PCM.PREANE ---
Preanesthetic Assessment - Anesthesia/Transfusion/Family Hx Anesthesia History: Prior Anesthesia Without Reaction Family History of Anesthesia Reaction: No Transfusion History: No Prior Transfusion(s) Type of Transfusion Reactions: Reports: Unknown - Review of Systems General: No Symptoms Pulmonary: Cough (Cough for the last few weeks. Estella feels it is improving. Occasionaly productive. Dr. Burleson aware. ) Cardiovascular: No Symptoms Gastrointestinal: No Symptoms Neurological: No Symptoms Other: Reports: None - Physical Assessment NPO Status Date: 11/22/19 NPO Status Time: 17:00 Vital Signs: Last Vital Signs Temp 36.7 C 11/23/19 05:47 Pulse 103 H 11/23/19 05:47 Resp 16 11/23/19 05:47 BP 128/85 11/23/19 05:47 Pulse Ox 98 11/23/19 05:47 Height: 1.57 m Weight: 92.578 kg ASA Class: 2 Mental Status: Alert & Oriented x3 Airway Class: Mallampati = 3 Dentition: Reports: Normal Dentition Thyro-Mental Finger Breadths: 2 Mouth Opening Finger Breadths: 3 ROM/Head Extension: Full Lungs: Clear to Auscultation, Normal Respiratory Effort Cardiovascular: Regular Rate, Regular Rhythm - Lab Values: Laboratory Last Values WBC 10.55 K/mm3 (3.98-10.04) H 11/23/19 06:00 RBC 4.02 M/mm3 (3.98-5.22) 11/23/19 06:00 Hgb 10.9 gm/dl (11.2-15.7) L 11/23/19 06:00 Hct 34.1 % (34.1-44.9) 11/23/19 06:00 MCV 84.8 fl (79.4-94.8) 11/23/19 06:00 MCH 27.1 pg (25.6-32.2) 11/23/19 06:00 MCHC 32.0 g/dl (32.2-35.5) L 11/23/19 06:00 RDW Std Deviation 47.2 fL (36.4-46.3) H 11/23/19 06:00 Plt Count 246 K/mm3 (182-369) 11/23/19 06:00 MPV 9.9 fl (9.4-12.3) 11/23/19 06:00 Neut % (Auto) 68.5 % (34.0-71.1) 11/23/19 06:00 Lymph % (Auto) 20.8 % (19.3-51.7) 11/23/19 06:00 Rains % (Auto) 9.8 % (4.7-12.5) 11/23/19 06:00 Eos % (Auto) 0.5 (0.7-5.8) L 11/23/19 06:00 Baso % (Auto) 0.2 % (0.1-1.2) 11/23/19 06:00 Neut # (Auto) 7.24 K/mm3 (1.56-6.13) H 11/23/19 06:00 Lymph # (Auto) 2.19 K/mm3 (1.18-3.74) 11/23/19 06:00 Rains # (Auto) 1.03 K/mm3 (0.24-0.36) H 11/23/19 06:00 Eos # (Auto) 0.05 K/mm3 (0.04-0.36) 11/23/19 06:00 Baso # (Auto) 0.02 K/mm3 (0.01-0.08) 11/23/19 06:00 Manual Slide Review Not Reportable 11/23/19 06:00 - Allergies Allergies/Adverse Reactions: Allergies Allergy/AdvReac Type Severity Reaction Status Date / Time loratadine [From Claritin] Allergy Mild Swelling Verified 11/23/19 05:27 Penicillins Allergy Mild Rash Verified 11/23/19 05:27 - Acknowledgements Anesthesia Type Planned: Spinal Pt an Appropriate Candidate for the Planned Anesthesia: Yes Alternatives and Risks of Anesthesia Discussed w Pt/Guardian: Yes Pt/Guardian Understands and Agrees with Anesthesia Plan: Yes PreAnesthesia Questionnaire - Past Health History Medical/Surgical History: Denies 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: Other OB/BYN History: C/S x2 (2017,2018) - Past Surgical History HEENT Surgical History: Reports: Oral Surgery, Tonsillectomy Other HEENT Surgeries/Procedures: [place] Teeth removal Female Surgical History: Reports: Section - SUBSTANCE USE Smoking Status *Q: Never Smoker Tobacco Use Within Last Twelve Months: No Second Hand Smoke Exposure: No Recreational Drug Use History: No - HOME MEDS Home Medications: Home Meds No122/Iron/Folic Acid [ Multi Tablet] 1 tab PO DAILY 11/30/16 [ History] Cetirizine [ZyrTEC] 10 mg PO DAILY 11/22/19 [History] - CURRENT (IN HOUSE) MEDS Current Meds: Current Medications Cefazolin Sodium/Dextrose 2 gm (/ Premix) 50 mls @ 100 mls/hr IV ONETIME ONE Stop: 11/23/19 07:29 Lactated Ringer's (Ringers, Lactated) 1,000 mls @ 125 mls/hr IV ASDIRECTED WON Last Admin: 11/23/19 06:33 Dose: 125 mls/hr Oxytocin/Lactated Ringer's (Pitocin In Lr 20 Units/1,000 Ml) 20 unit in 1,000 mls @ 500 mls/hr IV ASDIRECTED WON Discontinued Medications Bupivacaine HCl (Marcaine 0.5%) Confirm Administered Dose 30 ml .ROUTE .STK-MED ONE Stop: 11/23/19 06:35 Cefazolin Sodium (Ancef) Confirm Administered Dose 2 gm .ROUTE .STK-MED ONE Stop: 11/23/19 06:48 Citric Acid/Sodium Citrate (Bicitra Solution) 30 ml PO ONETIME ONE Stop: 11/23/19 06:31 Last Admin: 11/23/19 06:55 Dose: 30 ml Lactated Ringer's (Ringers, Lactated) Confirm Administered Dose 2,000 mls @ as directed .ROUTE .STK-MED ONE Stop: 11/23/19 06:48 Ketorolac Tromethamine (Toradol) Confirm Administered Dose 30 mg .ROUTE .STK- MED ONE Stop: 11/23/19 06:48 Metoclopramide HCl (Reglan) 10 mg IVPUSH ONETIME ONE Stop: 11/23/19 06:31 Last Admin: 11/23/19 06:55 Dose: 10 mg Morphine Sulfate (Duramorph Pf) Confirm Administered Dose 10 mg .ROUTE .STK-MED ONE Stop: 11/23/19 06:48 Ondansetron HCl (Zofran) Confirm Administered Dose 4 mg .ROUTE .STK-MED ONE Stop: 11/23/19 06:48 Oxytocin (Pitocin) Confirm Administered Dose 20 unit .ROUTE .STK-MED ONE Stop: 11/23/19 06:48
[2019-11-23] MEDS ORDERED: Dexamethasone 4 MG/ML SDV ONE (08:02)
[2019-11-23] MEDS ORDERED: diphenhydrAMINE 50 MG/ML SDV IVPUSH PRN ×2 (08:05→09:40)
[2019-11-23] MEDS ORDERED: Ondansetron 4 MG/2 ML SDV IVPUSH PRN (08:05)
[2019-11-23] MEDS ORDERED: fentaNYL 100 MCG/2 ML SDV IVPUSH PRN (08:05)
--- NOTE | 2019-11-23 08:41 | PCM.OPNOTE ---
- General Post-Op/Procedure Note Date of Surgery/Procedure: 11/23/19 Operative Procedure(s): Repeat low segment transverse (third ) Pre Op Diagnosis: Previous section x2, 39w1d, GBS positive Post-Op Diagnosis: Same Anesthesia Technique: Spinal Primary Surgeon: Alec Burleson Secondary Surgeon: Laly Heredia Anesthesia Provider: Jovita Lopez Reason Flooring Installer Was Necessary: Assist in surgery, retraction, decrease comorbidity and mortality patient safety Role of Flooring Installer: Assist in surgery, retraction, decrease comorbidity and mortality patient safety Fluid Replacement, Intraop: 1,800 Output, Urine Amount: 100 EBL in mLs: 350 Drain/Tube Comments:: nascimento Complications: None Condition: Good Free Text/Narrative:: Patient was transported to the operating room and placed under spinal anesthesia in the supine position with wedge under the right hip and right flank. SCDs in place and functioning prior to surgery. Ancef 2 g given intravenously (patient has history of penicillin allergy but has had Ancef for her other 2 C-sections without untoward effect.) Timeout performed confirming name, date of , procedure as section. Patient had vaginal prep performed Nascimento catheter had been placed gravity drainage and prepared and draped in a sterile fashion. Adequate level of anesthesia was confirmed patient' s brought to the operating room. 20 mL of 0.5% Marcaine without epinephrine injected in the area of the planned incision. Pfannenstiel incision was made and care was sharp section to into the anterior fascia. Peritoneal cavity was entered without difficulty. Bladder flap created pushed caudad. Low segment transverse performed with clear amnionic fluid upon entry into the amnionic cavity. Due to the inelasticity of the skin scar tissue vacuum traction was applied times one in the green for less than 15 seconds. The female liveborn delivered at 0747 hrs. on Tuesday11/23/2019. Weight 30/3/30 grams/[address] Guillen dictaphone technician (director business systems) and Naila Abraham RN at delivery. Apgars 9/9. Cord blood was collected from three-vessel cord placenta was removed manually. Endometrial cavity inspected. Cervical patency assured. Sponge, needle, pack count, and sharp count correct times one on closure the uterus. The uterus was closed in 2 layers first layer running locking suture of 0 Monocryl. Second layer a horizontal imbricating modified Lembert suture for second layer closure. Both tubes and ovaries were normal clot screen from the gutters and cul-de-sac uterus replaced into the abdominal cavity. The uterine incision reinspected no bleeding. Sponge, needle, pack count , asthma count correct 2 and abdominal cavity closed. Anterior fascia closed with #1 PDS running suture. Subcutaneous tissue was closed with 0 Monocryl interrupted 3 sutures. The skin was closed with subcuticular suture of 3-0 Monocryl on Manuel needle. Dermabond Preneo applied. Clots were cleaned from the vagina at the end procedure. Patient was transported postanesthesia care unit in satisfactory condition. No blood transfusions required not anticipated Nusser condition should change. This note was created, at least in part, by the use of [employer] voice dictation system. Inadvertent typographical errors, due to software recognition problems, may exist.
[2019-11-23] MEDS ORDERED: ePHEDrine 50 MG/ML SDV IVPUSH PRN (09:40)
[2019-11-23] MEDS ORDERED: Docusate Sodium 100 MG Cap PO PRN (09:40)
[2019-11-23] MEDS ORDERED: Sodium Chloride 0.9% 10 ML Syringe FLUSH PRN (09:40)
[2019-11-23] MEDS ORDERED: Acetaminophen/oxyCODONE 325-5 MG Tab PO PRN (09:40)
[2019-11-23] MEDS ORDERED: Acetaminophen 325 MG Tab PO PRN (09:40)
[2019-11-23] MEDS ORDERED: Dextrose 5%-Lactated Ringers 1,000 ML IV SCH (09:40)
[2019-11-23] MEDS ORDERED: Naloxone 0.4 MG/ML SDV IVPUSH PRN (09:40)
[2019-11-23] MEDS: guaiFENesin/Dextromethorphan 100-10 MG/5 ML Soln 5 ML Cup PO SCH ×3 (10:09→21:19)
[2019-11-23] MEDS: Simethicone 80 MG Tab.Chew PO SCH ×4 (10:10→21:20)
[2019-11-23] MEDS: Ketorolac 30 MG/ML SDV IVPUSH SCH ×2 (14:12→20:24)
[2019-11-24] MEDS: Ketorolac 30 MG/ML SDV IVPUSH SCH (02:39)
[2019-11-24] MEDS: guaiFENesin/Dextromethorphan 100-10 MG/5 ML Soln 5 ML Cup PO SCH ×4 (03:57→20:40)
[2019-11-24] MEDS: Simethicone 80 MG Tab.Chew PO SCH ×4 (09:26→22:31)
[2019-11-24] MEDS: Ibuprofen 600 MG Tab PO PRN ×3 (09:26→20:34)
--- NOTE | 2019-11-24 10:23 | PCM.SN ---
- Free Text/Narrative Note: Chest auscultation normal breath sound, Cor RSR no abnormal sounds, Abdomen soft , uterus involuting normally, incision normal, no heavy vaginal bleeding. Lezama out and patient voiding without difficulty. No leg cramping. Probably home tomorrow.
[2019-11-24] MEDS: Acetaminophen/oxyCODONE 325-5 MG Tab PO PRN (18:57)
[2019-11-25] MEDS: guaiFENesin/Dextromethorphan 100-10 MG/5 ML Soln 5 ML Cup PO SCH ×2 (03:14→10:00)
[2019-11-25] MEDS: Acetaminophen/oxyCODONE 325-5 MG Tab PO PRN ×2 (03:15→08:05)
[2019-11-25] MEDS: Simethicone 80 MG Tab.Chew PO SCH (08:05)
[2019-11-25 08:29] VITALS: BP 122/88; PULSE 77
--- NOTE | 2019-11-25 08:43 | PCM48HPAN ---
Post Anesthesia Note - EVALUATION WITHIN 48HRS OF ANESTHETIC Vital Signs in Normal Range: Yes Patient Participated in Evaluation: Yes Respiratory Function Stable: Yes Airway Patent: Yes Cardiovascular Function Stable: Yes Hydration Status Stable: Yes Pain Control Satisfactory: Yes Nausea and Vomiting Control Satisfactory: Yes Mental Status Recovered: Yes Vital Signs: Last Vital Signs Temp 98.1 F 11/25/19 08:07 Pulse 77 11/25/19 08:07 Resp 18 11/25/19 08:07 BP 122/88 11/25/19 08:07 Pulse Ox 98 11/25/19 08:07 - COMMENTS/OBSERVATIONS Free Text/Narrative:: Patient on her postoperative day 2. Patient has stated understanding about possible backaches following epidural / spinal anesthesia. Patient denies any headache, lightheadedness or backache at this time. Ambulating, no difficulty urinating.
--- NOTE | 2019-11-25 10:04 | PCM.DCSUM1 ---
Discharge Summary - Hospital Course Free Text/Narrative:: [facility] Post-Op/Procedure Note Patient Name: BEENA HOYT Date of : 88 Patient Status: Inpatient Attending Provider: Alec Burleson Date: 11/23/19 08:31 Initialization Date: 11/23/19 08:31 - General Post-Op/Procedure Note Date of Surgery/Procedure: 11/23/19 Operative Procedure(s): Repeat low segment transverse (third ) Pre Op Diagnosis: Previous section x2, 39w1d, GBS positive Post-Op Diagnosis: Same Anesthesia Technique: Spinal Primary Surgeon: Alec Burleson Secondary Surgeon: Laly Heredia Anesthesia Provider: Jovita Lopez Reason Corner Bead Operator Was Necessary: Assist in surgery, retraction, decrease comorbidity and mortality patient safety Role of Corner Bead Operator: Assist in surgery, retraction, decrease comorbidity and mortality patient safety Fluid Replacement, Intraop: 1,800 Output, Urine Amount: 100 EBL in mLs: 350 Drain/Tube Comments:: nascimento Complications: None Condition: Good Free Text/Narrative:: Patient was transported to the operating room and placed under spinal anesthesia in the supine position with wedge under the right hip and right flank. SCDs in place and functioning prior to surgery. Ancef 2 g given intravenously (patient has history of penicillin allergy but has had Ancef for her other 2 C-sections without untoward effect.) Timeout performed confirming name, date of , procedure as section. Patient had vaginal prep performed Nascimento catheter had been placed gravity drainage and prepared and draped in a sterile fashion. Adequate level of anesthesia was confirmed patient' s brought to the operating room. 20 mL of 0.5% Marcaine without epinephrine injected in the area of the planned incision. Pfannenstiel incision was made and care was sharp section to into the anterior fascia. Peritoneal cavity was entered without difficulty. Bladder flap created pushed caudad. Low segment transverse performed with clear amnionic fluid upon entry into the amnionic cavity. Due to the inelasticity of the skin scar tissue vacuum traction was applied times one in the green for less than 15 seconds. The female liveborn delivered at 0747 hrs. on Tuesday11/23/2019. Weight 30/3/30 grams/[address] Guillen certified medication technician (supervisor leaf spring fabrication) and Naila Abraham RN at delivery. Apgars 9/9. Cord blood was collected from three-vessel cord placenta was removed manually. Endometrial cavity inspected. Cervical patency assured. Sponge, needle, pack count, and sharp count correct times one on closure the uterus. The uterus was closed in 2 layers first layer running locking suture of 0 Monocryl. Second layer a horizontal imbricating modified Lembert suture for second layer closure. Both tubes and ovaries were normal clot screen from the gutters and cul-de-sac uterus replaced into the abdominal cavity. The uterine incision reinspected no bleeding. Sponge, needle, pack count , asthma count correct 2 and abdominal cavity closed. Anterior fascia closed with #1 PDS running suture. Subcutaneous tissue was closed with 0 Monocryl interrupted 3 sutures. The skin was closed with subcuticular suture of 3-0 Monocryl on Manuel needle. Dermabond Preneo applied. Clots were cleaned from the vagina at the end procedure. Patient was transported postanesthesia care unit in satisfactory condition. No blood transfusions required not anticipated Nusser condition should change. This note was created, at least in part, by the use of Shut Down voice dictation system. Inadvertent typographical errors, due to software recognition problems, may exist. HPI Initial Comments: [facility] Post-Op/Procedure Note Patient Name: BEENA HOYT Date of : 88 Patient Status: Inpatient Attending Provider: Alec Burleson Date: 11/23/19 08:31 Initialization Date: 11/23/19 08:31 - General Post-Op/Procedure Note Date of Surgery/Procedure: 11/23/19 Operative Procedure(s): Repeat low segment transverse (third ) Pre Op Diagnosis: Previous section x2, 39w1d, GBS positive Post-Op Diagnosis: Same Anesthesia Technique: Spinal Primary Surgeon: Alec Burleson Secondary Surgeon: Laly Heredia Anesthesia Provider: Jovita Lopez Reason Corner Bead Operator Was Necessary: Assist in surgery, retraction, decrease comorbidity and mortality patient safety Role of Corner Bead Operator: Assist in surgery, retraction, decrease comorbidity and mortality patient safety Fluid Replacement, Intraop: 1,800 Output, Urine Amount: 100 EBL in mLs: 350 Drain/Tube Comments:: nascimento Complications: None Condition: Good Free Text/Narrative:: Patient was transported to the operating room and placed under spinal anesthesia in the supine position with wedge under the right hip and right flank. SCDs in place and functioning prior to surgery. Ancef 2 g given intravenously (patient has history of penicillin allergy but has had Ancef for her other 2 C-sections without untoward effect.) Timeout performed confirming name, date of , procedure as section. Patient had vaginal prep performed Nascimento catheter had been placed gravity drainage and prepared and draped in a sterile fashion. Adequate level of anesthesia was confirmed patient' s brought to the operating room. 20 mL of 0.5% Marcaine without epinephrine injected in the area of the planned incision. Pfannenstiel incision was made and care was sharp section to into the anterior fascia. Peritoneal cavity was entered without difficulty. Bladder flap created pushed caudad. Low segment transverse performed with clear amnionic fluid upon entry into the amnionic cavity. Due to the inelasticity of the skin scar tissue vacuum traction was applied times one in the green for less than 15 seconds. The female liveborn delivered at 0747 hrs. on Tuesday11/23/2019. Weight 30/3/30 grams/[address] Guillen certified medication technician (supervisor leaf spring [employer]) and Naila Abraham RN at delivery. Apgars 9/9. Cord blood was collected from three-vessel cord placenta was removed manually. Endometrial cavity inspected. Cervical patency assured. Sponge, needle, pack count, and sharp count correct times one on closure the uterus. The uterus was closed in 2 layers first layer running locking suture of 0 Monocryl. Second layer a horizontal imbricating modified Lembert suture for second layer closure. Both tubes and ovaries were normal clot screen from the gutters and cul-de-sac uterus replaced into the abdominal cavity. The uterine incision reinspected no bleeding. Sponge, needle, pack count , asthma count correct 2 and abdominal cavity closed. Anterior fascia closed with #1 PDS running suture. Subcutaneous tissue was closed with 0 Monocryl interrupted 3 sutures. The skin was closed with subcuticular suture of 3-0 Monocryl on Manuel needle. Dermabond Preneo applied. Clots were cleaned from the vagina at the end procedure. Patient was transported postanesthesia care unit in satisfactory condition. No blood transfusions required not anticipated Nusser condition should change. This note was created, at least in part, by the use of Shut Down voice dictation system. Inadvertent typographical errors, due to software recognition problems, may exist. Brief History: [facility] . Post-Op/Procedure Note. Patient Name: BEENA HOYT [facility] Record Number: [id number]. Date of : Patient Status: Inpatient. Attending Provider: Alec Burlesonount Number: [id number]. Date: 11/23/19 08:31Initialization Date: 11/23/19 08:31. - General Post-Op/Procedure Note. Date of Surgery/Procedure: 11/23/19. Operative Procedure(s): Repeat low segment transverse (third ). Pre Op Diagnosis: Previous section x2, 39w1d, GBS positive. Post- Op Diagnosis: Same. Anesthesia Technique: Spinal. Primary Surgeon: Alec Burleson. Secondary Surgeon: Laly Heredia. Anesthesia Provider: Jovita Lopez. Reason Corner Bead Operator Was Necessary: Assist in surgery, retraction, decrease comorbidity and mortality patient safety. Role of Corner Bead Operator: Assist in surgery, retraction, decrease comorbidity and mortality patient safety. Fluid Replacement, Intraop: 1,800. Output, Urine Amount: 100. EBL in mLs: 350. Drain/Tube Comments:: nascimento. Complications: None. Condition: Good. Free Text/Narrative:: Patient was transported to the operating room and placed under spinal anesthesia in the supine position with wedge under the right hip and right flank. SCDs in place and functioning prior to surgery. Ancef 2 g given intravenously (patient has history of penicillin allergy but has had Ancef for her other 2 C-sections without untoward effect.) Timeout performed confirming name, date of , procedure as section. Patient had vaginal prep performed Nascimento catheter had been placed gravity drainage and prepared and draped in a sterile fashion. Adequate level of anesthesia was confirmed patient's brought to the operating room. 20 mL of 0.5% Marcaine without epinephrine injected in the area of the planned incision. Pfannenstiel incision was made and care was sharp section to into the anterior fascia. Peritoneal cavity was entered without difficulty. Bladder flap created pushed caudad. Low segment transverse performed with clear amnionic fluid upon entry into the amnionic cavity. Due to the inelasticity of the skin scar tissue vacuum traction was applied times one in the green for less than 15 seconds. The female liveborn delivered at 0747 hrs. on Tuesday11/23/2019. Weight 30/3/30 grams/[address] Guillen certified medication technician (supervisor leaf spring fabrication) and Naila Abraham RN at delivery. Apgars 9/9. Cord blood was collected from three-vessel cord placenta was removed manually. Endometrial cavity inspected. Cervical patency assured. Sponge, needle, pack count, and sharp count correct times one on closure the uterus. The uterus was closed in 2 layers first layer running locking suture of 0 Monocryl. Second layer a horizontal imbricating modified Lembert suture for second layer closure. Both tubes and ovaries were normal clot screen from the gutters and cul-de-sac uterus replaced into the abdominal cavity. The uterine incision reinspected no bleeding. Sponge, needle, pack count , asthma count correct 2 and abdominal cavity closed. Anterior fascia closed with #1 PDS running suture. Subcutaneous tissue was closed with 0 Monocryl interrupted 3 sutures. The skin was closed with subcuticular suture of 3-0 Monocryl on Manuel needle. Dermabond Preneo applied. Clots were cleaned from the vagina at the end procedure. Patient was transported postanesthesia care unit in satisfactory condition. No blood transfusions required not anticipated Nusser condition should change. This note was created, at least in part, by the use of Shut Down voice dictation system. Inadvertent typographical errors, due to software recognition problems, may exist. Diagnosis: Stroke: No - Discharge Data Discharge Date: 11/25/19 Discharge Disposition: Home, Self-Care 01 Condition: Good - Referral to Home Health Primary Care Physician: PCP None - Discharge Diagnosis/Problem(s) (1) 39 weeks gestation of SNOMED Code(s): 69332526 ICD Code: Z3A.39 - 39 WEEKS GESTATION OF Status: Acute Current Visit: No (2) 38 weeks gestation of SNOMED Code(s): 32803128 ICD Code: Z3A.38 - 38 WEEKS GESTATION OF Status: Acute Current Visit: No (3) History of section complicating SNOMED Code(s): 924107065, 010824363 ICD Code: O34.219 - MATERNAL CARE FOR UNSP TYPE SCAR FROM PREVIOUS DEL Status: Acute Current Visit: No (4) Group B Streptococcus carrier state affecting SNOMED Code(s): 761893447 ICD Code: O99.820 - STREPTOCOCCUS B CARRIER STATE COMPLICATING Status: Acute Current Visit: No (5) History of 2 sections SNOMED Code(s): 508242008 ICD Code: Z98.891 - HISTORY OF UTERINE SCAR FROM PREVIOUS SURGERY Status: Acute Current Visit: No (6) macrosomia during in third trimester SNOMED Code(s): 054257464, 627646451 ICD Code: O36.63X0 - MATERNAL CARE FOR EXCESS GROWTH, THIRD TRIMESTER, UNSP Status: Acute Current Visit: No Qualifiers: Fetus number: single or unspecified fetus Qualified Code(s): O36.63X0 - Maternal care for excessive growth, third trimester, not applicable or unspecified - Patient Summary/Data Operative Procedure(s) Performed: Repeat low segment transverse ( third ) Complications: none Consults: none Hospital Course: uneventful - Patient Instructions Diet: Usual Diet as Tolerated Driving: Do Not Drive (x2 weeks) Wound/Incision Care: Keep Operative Site/Wound Site Clean and Dry Notify Provider of: Fever, Increased Pain, Swelling and Redness, Drainage, Nausea and/or Vomiting - Discharge Plan *PRESCRIPTION DRUG MONITORING PROGRAM REVIEWED*: Not Applicable *COPY OF PRESCRIPTION DRUG MONITORING REPORT IN PATIENT DOMINGA: Not Applicable Home Medications: Home Meds No122/Iron/Folic Acid [ Multi Tablet] 1 tab PO DAILY 11/30/16 [ History] Cetirizine [ZyrTEC] 10 mg PO DAILY 11/22/19 [History] Acetaminophen [Tylenol] 650 mg PO Q4H PRN tablet 11/25/19 [Rx] Docusate Sodium [Colace] 100 mg PO Q12H PRN cap 11/25/19 [Rx] Ibuprofen [Motrin] 600 mg PO Q6H PRN tablet 11/25/19 [Rx] Simethicone 80 mg PO PCBED tab.chew 11/25/19 [Rx] Patient Handouts: Care After Delivery Referrals: Alec Burleson MD [Physician] - - Discharge Summary/Plan Comment DC Time >30 min.: No - Patient Data Vitals - Most Recent: Last Vital Signs Temp 98.1 F 11/25/19 08:07 Pulse 77 11/25/19 08:07 Resp 18 11/25/19 08:07 BP 122/88 11/25/19 08:07 Pulse Ox 98 11/25/19 08:07 Weight - Most Recent: 204 lb 1.6 oz Lab Results - Last 24 hrs: Laboratory Results - last 24 hr 11/23/19 Range/Units 06:00 RPR Non-reactive (NONREACTIVE) Med Orders - Current: Current Medications Acetaminophen (Tylenol) 650 mg PO Q4H PRN PRN Reason: mild pain or fever Diphenhydramine HCl (Benadryl) 25 mg IVPUSH Q6H PRN PRN Reason: Itching or Nausea Last Admin: 11/23/19 09:53 Dose: 25 mg Docusate Sodium (Colace) 100 mg PO Q12H PRN PRN Reason: Constipation Last Admin: 11/24/19 20:35 Dose: 100 mg Ephedrine Sulfate (Ephedrine Sulfate) 5 mg IVPUSH SEECOMMENT PRN PRN Reason: Other Guaifenesin/Phenylephrine HCl (Robitussin Dm) 10 ml PO Q6H WON Last Admin: 11/25/19 10:00 Dose: 10 ml Ibuprofen (Motrin) 600 mg PO Q6H PRN PRN Reason: mild pain or fever Last Admin: 11/24/19 20:34 Dose: 600 mg Naloxone HCl (Narcan) 0.1 mg IVPUSH SEECOMMENT PRN PRN Reason: Respiratory Depression Oxycodone/Acetaminophen (Percocet 325-5 Mg) 1 tab PO Q4H PRN PRN Reason: Pain (moderate 4-6) Last Admin: 11/25/19 08:05 Dose: 1 tab Oxycodone/Acetaminophen (Percocet 325-5 Mg) 2 tab PO Q4H PRN PRN Reason: Pain (severe 7-10) Last Admin: 11/24/19 11:40 Dose: 2 tab Cetirizine 10 Mg 0 each PO DAILY [facility] Last Admin: 11/25/19 10:01 Dose: Not Given Simethicone (Simethicone) 80 mg PO PCBED [facility] Last Admin: 11/25/19 08:05 Dose: 80 mg Sodium Chloride (Saline Flush) 10 ml FLUSH ASDIRECTED PRN PRN Reason: Keep Vein Open Discontinued Medications Bupivacaine HCl (Marcaine 0.5%) Confirm Administered Dose 30 ml .ROUTE .STK-MED ONE Stop: 11/23/19 06:35 Last Admin: 11/23/19 07:42 Dose: 20 ml Cefazolin Sodium (Ancef) Confirm Administered Dose 2 gm .ROUTE .STK-MED ONE Stop: 11/23/19 06:48 Citric Acid/Sodium Citrate (Bicitra Solution) 30 ml PO ONETIME ONE Stop: 11/23/19 06:31 Last Admin: 11/23/19 06:55 Dose: 30 ml Dexamethasone (Dexamethasone) Confirm Administered Dose 4 mg .ROUTE .STK-MED ONE Stop: 11/23/19 08:03 Diphenhydramine HCl (Benadryl) 25 mg IVPUSH Q6H PRN PRN Reason: Pruritis Fentanyl (Sublimaze) 50 mcg IVPUSH Q5M PRN PRN Reason: Pain Cefazolin Sodium/Dextrose 2 gm (/ Premix) 50 mls @ 100 mls/hr IV ONETIME ONE Stop: 11/23/19 07:29 Last Admin: 11/23/19 07:43 Dose: Not Given Lactated Ringer's (Ringers, Lactated) 1,000 mls @ 125 mls/hr IV ASDIRECTED [facility] Last Admin: 11/23/19 06:33 Dose: 125 mls/hr Oxytocin/Lactated Ringer's (Pitocin In Lr 20 Units/1,000 Ml) 20 unit in 1,000 mls @ 500 mls/hr IV ASDIRECTED [facility] Lactated Ringer's (Ringers, Lactated) Confirm Administered Dose 2,000 mls @ as directed .ROUTE .STK-MED ONE Stop: 11/23/19 06:48 Dextrose/Lactated Ringer's (Dextrose 5%-Lactated Ringers) 1,000 mls @ 125 mls/ hr IV ASDIRECTED [facility] Stop: 11/23/19 17:39 Last Admin: 11/23/19 14:15 Dose: 125 mls/hr Ketorolac Tromethamine (Toradol) Confirm Administered Dose 30 mg .ROUTE .STK- MED ONE Stop: 11/23/19 06:48 Ketorolac Tromethamine (Toradol) 30 mg IVPUSH Q6H [facility] Stop: 11/24/19 02:01 Last Admin: 11/24/19 02:39 Dose: 30 mg Metoclopramide HCl (Reglan) 10 mg IVPUSH ONETIME ONE Stop: 11/23/19 06:31 Last Admin: 11/23/19 06:55 Dose: 10 mg Morphine Sulfate (Duramorph Pf) Confirm Administered Dose 10 mg .ROUTE .STK-MED ONE Stop: 11/23/19 06:48 Ondansetron HCl (Zofran) Confirm Administered Dose 4 mg .ROUTE .STK-MED ONE Stop: 11/23/19 06:48 Ondansetron HCl (Zofran) 4 mg IVPUSH ONETIME PRN PRN Reason: Nausea/Vomiting Oxytocin (Pitocin) Confirm Administered Dose 20 unit .ROUTE .STK-MED ONE Stop: 11/23/19 06:48
== END 2019-11-25 11:50 | disposition home or self-care (01) | DRG 540 ==
LOC: JD.OB 05:31 → EDSTATUS 07:30
PROVIDERS: ADMIT Obstetrics & Gynecology; ATTEND Obstetrics & Gynecology
PROC: 10D00Z1 Extraction of Products of Conception, Low, Open Approach (ICD-10-PCS; principal; 2019-11-23)
DX: O34.211 Maternal care for low transverse scar from previous cesarean delivery (principal); O99.824 Streptococcus B carrier state complicating childbirth; O36.63X0 Maternal care for excessive fetal growth, third trimester, not applicable or unspecified; Z37.0 Single live birth; Z88.0 Allergy status to penicillin; Z88.8 Allergy status to other drugs, medicaments and biological substances; Z79.899 Other long term (current) drug therapy; Z90.89 Acquired absence of other organs; Z3A.38 38 weeks gestation of pregnancy
CPT/HCPCS: 01961; 36415; 59025; 85025; 86592; 86850; 86900; 86901; A9270-GY; J0690; J1100; J1200; J1885; J2270; J2405; J2590; J2765; J3490; J7120; J7121

== ENCOUNTER 2021-03-26 05:01 | Inpatient (IN) | payer BC ==
--- NOTE | 2021-03-23 09:46 | PCM.LDHP ---
L&D History of Present Illness - General Date of Service: 03/23/21 Admit Problem/Dx: Admission Diagnosis/Problem Admission Diagnosis/Problem Source of Information: Patient History Limitations: Reports: No Limitations - History of Present Illness Introduction:: Estella Dobbs is a 30-year-old -0-0-3 female at 38 weeks 6 days (KYRA 03/31/2021) on 03/23/2021 by an 8-week ultrasound who presented for preoperative appointment on 03/23/2021. She was doing well at that appointment and did not have any significant concerns. She reported good movement. She was not having any contractions or cramping. She denies any leaking of fluid or vaginal bleeding. She did not have any concerns regarding scheduled upcoming surgery. Associated Symptoms: Denies: vaginal bleeding, vaginal discharge, vaginal fluid Present Illness Comments:: Estella Dobbs is a 30-year-old -0-0-3 female at 38 weeks 6 days (KYRA 03/31/2021) on 03/23/2021 by an 8-week ultrasound who presented for preoperative appointment on 03/23/2021. She will be 39 weeks 2 days on scheduled date of her section on 03/26/2021. She has had routine care throughout the with myself, Dr. Sapp, and Dr. Burleson starting at 10 weeks gestational age. She had received the influenza vaccine on 07/28/2020. She received Tdap on 01/05/2021. There were no significant abnormalities noted on her anatomy ultrasound. 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 -0-0-3 G1: 12/01/2016, 40 weeks 2 days, primary section, 8 pounds 10 ounces, male , epidural for anesthesia, no complications G2: 05/10/2018, 40 weeks 1 day, repeat section due to history of section, 8 pounds 13 ounces, female , spinal for anesthesia, no complications G3: 11/23/2019, 39 weeks 1 day, repeat section, 7 pounds 5 ounces, female infant, spinal for anesthesia, no complications G4: Current labs Blood type: O+ Antibody screen: Negative First trimester hematocrit/hemoglobin: 40.5%/13.5 on 08/14/2020 Platelets: 315 on 08/14/2020 Urine culture: Mixed pepito suggestive of contamination Rubella status: Immune Hepatitis B surface antigen: Negative RPR: Negative Hepatitis C: Negative HIV: Negative Gonorrhea: Negative Chlamydia: Negative Anatomy ultrasound: Normal anatomy, no abnormalities, posterior placenta, no previa, 77th percentile on 11/17/2020 One hour glucose tolerance test: 100 Second trimester hematocrit/hemoglobin: 34.6%/11.4 on 12/19/2020 Platelets: 242 on 12/19/2020 GBS status: Negative on 03/09/2021 - Related Data Allergies/Adverse Reactions: Allergies Allergy/AdvReac Type Severity Reaction Status Date / Time loratadine [From Claritin] Allergy Mild Swelling Verified 11/23/19 05:27 Penicillins Allergy Mild Rash Verified 11/23/19 05:27 Home Medications: Home Meds No122/Iron/Folic Acid [ Multi Tablet] 1 tab PO DAILY 11/30/16 [History] Cetirizine [ZyrTEC] 10 mg PO DAILY 11/22/19 [History] Acetaminophen [Tylenol] 650 mg PO Q4H PRN tablet 11/25/19 [Rx] Docusate Sodium [Colace] 100 mg PO Q12H PRN cap 11/25/19 [Rx] Ibuprofen [Motrin] 600 mg PO Q6H PRN tablet 11/25/19 [Rx] Simethicone 80 mg PO PCBED tab.chew 11/25/19 [Rx] Past Medical History - Past Health History Medical/Surgical History: Denies Medical/Surgical History BLADE BENDER FURNACE TENDER History: Reports: : 4 Para: 3 Other OB/BYN History: C/S x2 (2017,2018) - Past Surgical History HEENT Surgical History: Reports: Oral Surgery, Tonsillectomy Other HEENT Surgeries/Procedures: [place] Teeth removal Female Surgical History: Reports: Section (x3) Social & Family History - Family History Family Medical History: No Pertinent Family History - Tobacco Use Tobacco Use Status *Q: Never Tobacco User Tobacco Use Within Last Twelve Months: No - Tobacco Core Measures Tobacco Use/Smoking Within Last 30 Days: No Smokeless Tobacco Use in Last 30 Days: No - Caffeine Use Caffeine Use: Reports: Soda - Alcohol Use Alcohol Use History: No - Recreational Drug Use Recreational Drug Use: No Drug Use in Last 12 Months: No - Living Situation & Occupation Living situation: Reports: , with Spouse, with Family Occupation: Employed H&P Review of Systems - Review of Systems: Review Of Systems: See Below General: Denies: Fever, Chills, Malaise, Weakness, Fatigue HEENT: Denies: Headaches, Rhinitis, Post Nasal Drip, Sinus Congestion, Sore Throat, Visual Changes Pulmonary: Denies: Shortness of Breath, Wheezing, Pleuritic Chest Pain, Cough Cardiovascular: Denies: Chest Pain, Palpitations, Dyspnea on Exertion, Orthopnea Gastrointestinal: Denies: Abdominal Pain, Constipation, Diarrhea, Nausea, Vomiting Genitourinary: Denies: Dysuria, Frequency, Burning, Pain, Urgency Musculoskeletal: Reports: Back Pain (And hip pain of ) Skin: Denies: Rash, Lesions Psychiatric: Denies: Depression, Anxiety L&D Exam - Exam Exam: See Below - Vital Signs Vital Signs: BP: 112/78 Weight: 95.164 kg - OB Specific Fundal Height In cm: 39 Movement: Active Heart Tones: Present Heart Tones per Min: 133 - Exam General: Alert, Oriented HEENT: Conjunctiva Clear, EOMI Neck: Supple, Trachea Midline Lungs: Clear to Auscultation, Normal Respiratory Effort Cardiovascular: Regular Rate, Regular Rhythm GI/Abdominal Exam: Soft, Non-Tender, No Distention, Other (Gravid). No: Guarding, Rigid, Rebound Genitourinary: Deferred Skin: Warm, Dry, Intact Psychiatric: Alert, Normal Affect, Normal Mood - Problem List (1) 39 weeks gestation of SNOMED Code(s): 80353633 ICD Code: Z3A.39 - 39 WEEKS GESTATION OF Status: Acute (2) History of section complicating SNOMED Code(s): 801590489, 427006906 ICD Code: O34.219 - MATERNAL CARE FOR UNSP TYPE SCAR FROM PREVIOUS DEL Status: Acute Problem List Initiated/Reviewed/Updated: Yes Assessment/Plan Comment:: Estella Dobbs is a 30-year-old -0-0-3 female who will be at 39 weeks 2 days on 03/26/2021 for her scheduled repeat section due to history of section and is complicated by history of section and obesity Admit to inpatient after section NST prior to section Place IV and have Lactated Ringer's at 125 ml/hr SCDs for DVT prophylaxis Nothing by mouth Activity as tolerated Plan for spinal injection for anesthesia CBC, RPR and type and screen prior to surgery Plans to breast-feed after delivery Plan for Ancef 2 g IV for antibiotic prophylaxis prior to surgery. Patient has a penicillin allergy but has received Ancef with her previous sections without any significant effects. Phil Sapp M.D. 11:29 AM 03/23/2021
[~2021-03-26 05:01] MED LIST changes: +Oxytocin/Lactated Ringers 10 UNIT/1,000 ML BAG IV SCH; -Oxytocin/Lactated Ringers 20 UNIT/1,000 ML BAG IV SCH; +Sodium Chloride 0.9% 10 ML Syringe FLUSH PRN
[2021-03-26] MEDS: Lactated Ringers 1,000 ML IV SCH ×2 (05:55→07:06)
[2021-03-26] MEDS ORDERED: ceFAZolin 2 GM in Premix Bag 1 BAG IV ONE (06:00)
[2021-03-26] MEDS ORDERED: Citric Acid/Sodium Citrate Solution 30 ML Cup PO ONE (06:00)
[2021-03-26] MEDS ORDERED: Metoclopramide 10 MG/2 ML SDV IVPUSH ONE (06:00)
[2021-03-26] MEDS ORDERED: diphenhydrAMINE 50 MG/ML SDV IVPUSH ONE (06:56)
--- NOTE | 2021-03-26 07:10 | PCM.PREANE ---
Preanesthetic Assessment - Procedure Proposed Procedure: Repeat C section - Anesthesia/Transfusion/Family Hx Anesthesia History: Prior Anesthesia Without Reaction Type of Anesthesia Reaction: Excessive Itching (with last spinal) Family History of Anesthesia Reaction: No Transfusion History: No Prior Transfusion(s) Intubation History: Unknown - Review of Systems General: No Symptoms Pulmonary: No Symptoms Cardiovascular: No Symptoms Gastrointestinal: No Symptoms Neurological: No Symptoms Other: Reports: None - Physical Assessment NPO Status Date: 03/25/21 NPO Status Time: 18:00 Vital Signs: Last Vital Signs Temp 36.7 C 03/26/21 05:22 Pulse 93 03/26/21 05:25 Resp 18 03/26/21 05:22 BP 133/91 H 03/26/21 05:25 Pulse Ox 96 03/26/21 05:25 Height: 1.57 m Weight: 94.347 kg ASA Class: 3 Mental Status: Alert & Oriented x3 Airway Class: Mallampati = 2 Dentition: Reports: Normal Dentition, Caries Thyro-Mental Finger Breadths: 3 Mouth Opening Finger Breadths: 3 ROM/Head Extension: Full Lungs: Clear to Auscultation, Normal Respiratory Effort Cardiovascular: Regular Rate, Regular Rhythm, No Murmurs - Lab Values: Laboratory Last Values WBC 8.67 K/mm3 (3.98-10.04) 03/26/21 05:35 RBC 4.23 M/mm3 (3.98-5.22) 03/26/21 05:35 Hgb 11.0 gm/dl (11.2-15.7) L 03/26/21 05:35 Hct 34.9 % (34.1-44.9) 03/26/21 05:35 MCV 82.5 fl (79.4-94.8) D 03/26/21 05:35 MCH 26.0 pg (25.6-32.2) 03/26/21 05:35 MCHC 31.5 g/dl (32.2-35.5) L 03/26/21 05:35 RDW Std Deviation 46.3 fL (36.4-46.3) 03/26/21 05:35 Plt Count 208 K/mm3 (182-369) 03/26/21 05:35 MPV 10.7 fl (9.4-12.3) 03/26/21 05:35 Neut % (Auto) 57.9 % (34.0-71.1) 03/26/21 05:35 Lymph % (Auto) 30.1 % (19.3-51.7) 03/26/21 05:35 [place] % (Auto) 10.4 % (4.7-12.5) 03/26/21 05:35 Eos % (Auto) 0.9 (0.7-5.8) 03/26/21 05:35 Baso % (Auto) 0.2 % (0.1-1.2) 03/26/21 05:35 Neut # (Auto) 5.02 K/mm3 (1.56-6.13) 03/26/21 05:35 Lymph # (Auto) 2.61 K/mm3 (1.18-3.74) 03/26/21 05:35 [place] # (Auto) 0.90 K/mm3 (0.24-0.36) H 03/26/21 05:35 Eos # (Auto) 0.08 K/mm3 (0.04-0.36) 03/26/21 05:35 Baso # (Auto) 0.02 K/mm3 (0.01-0.08) 03/26/21 05:35 Blood Type O POSITIVE 03/26/21 05:35 Gel Antibody Screen Negative 03/26/21 05:35 Above labs reviewed and noted and within acceptable ranges to proceed with scheduled procedure. - Allergies Allergies/Adverse Reactions: Allergies Allergy/AdvReac Type Severity Reaction Status Date / Time loratadine [From Claritin] Allergy Mild Swelling Verified 03/26/21 06:15 Penicillins Allergy Mild Rash Verified 03/26/21 06:15 - Anesthesia Plan Pre-Op Medication Ordered: Other (benadryl 50mg IV for pruitis history with prior spinals.) - Acknowledgements Anesthesia Type Planned: Spinal Pt an Appropriate Candidate for the Planned Anesthesia: Yes Alternatives and Risks of Anesthesia Discussed w Pt/Guardian: Yes Pt/Guardian Understands and Agrees with Anesthesia Plan: Yes PreAnesthesia Questionnaire - Past Health History Medical/Surgical History: Denies 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 OB/BYN History: C/S x3 (2016,2017,2019) - Past Surgical History HEENT Surgical History: Reports: Oral Surgery, Tonsillectomy Other HEENT Surgeries/Procedures: Grayson Teeth removal Cardiovascular Surgical History: Reports: Varicose Other Cardiovascular Surgeries/Procedures: Lower extremities Female Surgical History: Reports: Section - SUBSTANCE USE Tobacco Use Status *Q: Never Tobacco User Tobacco Use Within Last Twelve Months: No Recreational Drug Use History: No - HOME MEDS Home Medications: Home Meds No122/Iron/Folic Acid [ Multi Tablet] 1 tab PO DAILY 11/30/16 [History] Cetirizine [ZyrTEC] 10 mg PO DAILY 11/22/19 [History] - CURRENT (IN HOUSE) MEDS Current Meds: Current Medications Oxytocin/Lactated Ringer's (Pitocin In Lr 10 Units/1,000 Ml) 10 unit in 1,000 mls @ 100 mls/hr IV ASDIRECTED WON; Protocol Lactated Ringer's (Ringers, Lactated) 1,000 mls @ 125 mls/hr IV ASDIRECTED WON Last Admin: 03/26/21 05:55 Dose: 125 mls/hr Documented by: Sodium Chloride (Sodium Chloride 0.9% 10 Ml Syringe) 10 ml FLUSH ASDIRECTED PRN PRN Reason: Keep Vein Open Discontinued Medications Citric Acid/Sodium Citrate (Citric Acid/Sodium Citrate Solution 30 Ml Cup) 30 ml PO ONETIME ONE Stop: 03/26/21 06:01 Diphenhydramine HCl (Diphenhydramine 50 Mg/Ml Sdv) 50 mg IVPUSH ONETIME ONE Stop: 03/26/21 06:57 Cefazolin Sodium/Dextrose 2 gm (/ Premix) 50 mls @ 100 mls/hr IV ONETIME ONE Stop: 03/26/21 06:29 Metoclopramide HCl (Metoclopramide 10 Mg/2 Ml Sdv) 10 mg IVPUSH ONETIME ONE Stop: 03/26/21 06:01
[2021-03-26] MEDS ORDERED: Bupivacaine 0.5% 30 ML SDV ONE (07:14)
[2021-03-26] MEDS ORDERED: Ketorolac 30 MG/ML SDV ONE (07:26)
[2021-03-26] MEDS ORDERED: Oxytocin 10 Units/1 ML SDV ONE (07:26)
[2021-03-26] MEDS ORDERED: ceFAZolin 1 GM Vial ONE (07:26)
[2021-03-26] MEDS ORDERED: Lactated Ringers 500 ML ONE (07:26)
[2021-03-26] MEDS ORDERED: Ondansetron 4 MG/2 ML SDV ONE (07:26)
[2021-03-26] MEDS ORDERED: Morphine PF 10 MG/10 ML SDV ONE (07:27)
[2021-03-26] MEDS ORDERED: Scopolamine 1.5 MG Transdermal Patch TRDERM ONE (07:30)
[2021-03-26] MEDS ORDERED: ePHEDrine 50 MG/ML SDV IVPUSH PRN ×2 (07:48→10:02)
[2021-03-26] MEDS ORDERED: diphenhydrAMINE 50 MG/ML SDV IVPUSH PRN ×2 (07:48→10:02)
[2021-03-26] MEDS ORDERED: HYDROmorphone 0.5 MG/0.5 ML Syringe IVPUSH PRN (07:48)
[2021-03-26] MEDS ORDERED: fentaNYL 100 MCG/2 ML SDV IVPUSH PRN (07:48)
[2021-03-26] MEDS ORDERED: Ondansetron 4 MG/2 ML SDV IVPUSH PRN (07:48)
--- NOTE | 2021-03-26 08:44 | PCM.POSTAN ---
POST ANESTHESIA ASSESSMENT - MENTAL STATUS Mental Status: Alert - VITAL SIGNS Vital Signs: Last Vital Signs Temp 97.5 03/26/21 0836 Pulse 87 03/26/21 0836 Resp 17 03/26/21 0836 BP 117/72 03/26/21 0836 Pulse Ox 97% 03/26/21 0836 - RESPIRATORY Respiratory Status: Respiratory Rate WNL, Airway Patent, O2 Saturation Stable - CARDIOVASCULAR CV Status: Pulse Rate WNL, Blood Pressure Stable - GASTROINTESTINAL GI Status: No Symptoms - POST OP HYDRATION Hydration Status: Adequate & Stable
--- NOTE | 2021-03-26 09:13 | PCM.OPNOTE ---
- General Post-Op/Procedure Note Date of Surgery/Procedure: 03/26/21 Operative Procedure(s): Repeat section Findings: Live male delivered in vertex presentation at 07:54. There was 1 nuchal cord that was reduced prior to delivery. weight was 4040 g (8 pounds 14.8 ounces). Apgars were 8 and 9. Grossly normal-appearing uterus, fallopian tubes and ovaries bilaterally. Pre Op Diagnosis: 39 weeks gestational age, history of section Post-Op Diagnosis: Same Anesthesia Technique: Spinal Primary Surgeon: Phil Sapp Anesthesia Provider: Allyson Rojas Ged Preparation Teacher: Be Martin Reason Ged Preparation Teacher Was Necessary: Patient safety and reduction of morbidity and mortality Role of Ged Preparation Teacher: Retraction for visualization Pathology: None Fluid Replacement, Intraop: 1,000 Output, Urine Amount: 300 EBL in mLs: 650 Complications: None Condition: Good Free Text/Narrative:: Procedure in Detail: The patient was seen in room #5 and the risks, benefits and complications were discussed with the patient. The patient desired to proceed with section and appropriate consents were signed. The patient was taken to operating room #1. A Time Out was held and the patient was identified using 2 identifiers and the procedure was confirmed. The patient was given spinal anesthesia and was placed in dorsal supine position with leftward tilt. She was given 2 g Ancef for antibiotic prophylaxis. A Lezama catheter was inserted without difficulty. The patient was prepped and draped in the usual sterile manner. The abdominal skin was tested and the spinal anesthesia was found to be adequate. The skin was injected with 0.5% marcaine for local anesthesia. A Pfannenstiel skin incision was made and carried down through the subcutaneous tissue to the fascia with the scapel. The fascia was nicked in the midline using a scalpel and the fascial incision was extended transversely with Gentile scissors. The inferior aspect of the fascia was grasped with Tristan clamps and tented upwards. The fascia was from the underlying rectus muscle bluntly and sharply with Gentile scissors. Attention was then turned to the superior aspect of the fascia and was grasped using Tristan clamps and tented upwards. The underlying rectus muscle was dissected off bluntly and sharply with Gentile scissors. The peritoneum was identified and entered bluntly. The utero-vesical peritoneal reflection was identified and the peritoneum was incised with [place]um scissors and transversely extended. The bladder blade was inserted and the lower uterine segment was identified. A low transverse uterine incision was made sharply with a scalpel and extended laterally bluntly. The infant's head was brought to the uterine incision, the head was delivered and there was notation of a nuchal cord x1 that was reduced. The bladder blade was then removed and the infant was delivered atraumatically. On 03/26/2021 a live male infant was delivered in vertex position at 07:54, wt of 4040 grams, 8 pounds and 14.5 ounces. APGARS were 8 & 9. The nose and mouth were suctioned with bulb suction, the cord was doubly clamped and cut and was transferred to the awaiting tobacco classer. The placenta was removed intact and appeared normal with a three vessel cord. The uterus was exteriorized and the uterine cavity was cleaned using lap sponges. The hysterotomy was closed with a running locked suture of 0-Vicryl. A second suture of 0-Vicryl was used to imbricate the hysterotomy. There was a small area of bleeding approximately 25% of the way from the right hysterotomy edge and a single suture of 0 Vicryl in a [id number] suture was placed. This was then hemostatic. Additional pressure was applied to the hysterotomy and several of the small bleeders were noted to be hemostatic. Cautery was used to make the remainder of the small areas with bleeding hemostatic. The hysterotomy was hemostatic at this time. The uterus, tubes and ovaries appeared overall normal. The uterus was then returned into the abdominal cavity. The hysterotomy was noted to remain hemostatic inside the abdominal cavity. The fascia was noted to be hemostatic and the fascia was then reapproximated with running sutures of 0 PDS. The skin was reapproximated using 4-0 Monocryl and Steri-strips were applied over the incision. Instrument, sponge, and needle counts were correct prior to the abdominal closure and at the conclusion of the case. Phil Sapp MD 9:27 AM 03/26/2021
[2021-03-26] MEDS ORDERED: Naloxone 0.4 MG/ML SDV IVPUSH PRN (10:02)
[2021-03-26] MEDS ORDERED: Magnesium Hydroxide 400 MG/5 ML Susp 30 ML Cup PO PRN (10:02)
[2021-03-26] MEDS ORDERED: Dextrose 5%-Lactated Ringers 1,000 ML IV SCH (10:02)
[2021-03-26] MEDS ORDERED: Oxytocin/Lactated Ringers 10 UNIT/1,000 ML BAG IV SCH (10:02)
[2021-03-26] MEDS ORDERED: Acetaminophen/oxyCODONE 325-5 MG Tab PO PRN (10:02)
[2021-03-26] MEDS: Ketorolac 30 MG/ML SDV IVPUSH SCH ×2 (14:39→20:15)
[2021-03-26] MEDS: Prenatal Multivitamin with Calcium/Folic Acid/Iron Tab PO SCH (14:52)
[2021-03-26] MEDS: Docusate Sodium 100 MG Cap PO SCH ×2 (16:13→20:15)
[2021-03-27] MEDS: Ketorolac 30 MG/ML SDV IVPUSH SCH (02:58)
--- NOTE | 2021-03-27 06:43 | PCM48HPAN ---
Post Anesthesia Note - EVALUATION WITHIN 48HRS OF ANESTHETIC Vital Signs in Normal Range: Yes Patient Participated in Evaluation: Yes Respiratory Function Stable: Yes Airway Patent: Yes Cardiovascular Function Stable: Yes Hydration Status Stable: Yes Pain Control Satisfactory: Yes Nausea and Vomiting Control Satisfactory: Yes Mental Status Recovered: Yes Vital Signs: Last Vital Signs Temp 36.6 C 03/27/21 00:00 Pulse 76 03/27/21 00:00 Resp 14 03/27/21 05:00 BP 107/80 03/27/21 06:30 Pulse Ox 97 03/27/21 05:00
[2021-03-27] MEDS: Docusate Sodium 100 MG Cap PO SCH ×2 (09:35→21:37)
[2021-03-27] MEDS: Prenatal Multivitamin with Calcium/Folic Acid/Iron Tab PO SCH (09:35)
[2021-03-27] MEDS: Acetaminophen/oxyCODONE 325-5 MG Tab PO PRN ×3 (09:37→22:50)
--- NOTE | 2021-03-27 10:15 | PCM.SN.2 ---
- Free Text/Narrative Note: Post Operative Progress Note POD #1 Subjective: Doing well overall. Ambulating without difficulty. Lochia minimal. Lezama catheter removed earlier this morning and she is voiding without difficulty. Passing flatus. Tolerating regular diet without nausea or vomiting. Pain controlled with oral medications but reports that it has been increasing this morning. Oral medications have been helping with her pain. Breast-feeding with minimal difficulty. Objective: Vitals: Vital Signs - 24 hr 03/26/21 03/26/21 03/26/21 10:32 11:00 11:01 Temperature Temperature [ Temporal] Pulse, 77 72 Peripheral Pulse, Peripheral [ Right Pulse Oximetry] Respiratory 16 Rate Blood Pressure 84/50 L 108/68 Blood Pressure [Left Upper Arm ] O2 Sat by Pulse 98 98 100 Oximetry 03/26/21 03/26/21 03/26/21 11:34 12:00 12:02 Temperature Temperature [ Temporal] Pulse, 90 75 Peripheral Pulse, Peripheral [ Right Pulse Oximetry] Respiratory 16 Rate Blood Pressure 107/85 107/57 L Blood Pressure [Left Upper Arm ] O2 Sat by Pulse 98 99 98 Oximetry 03/26/21 03/26/21 03/26/21 13:00 13:02 13:35 Temperature Temperature [ Temporal] Pulse, 62 86 Peripheral Pulse, Peripheral [ Right Pulse Oximetry] Respiratory 16 Rate Blood Pressure 103/58 L 104/57 L Blood Pressure [Left Upper Arm ] O2 Sat by Pulse 100 97 98 Oximetry 03/26/21 03/26/21 03/26/21 14:00 15:25 16:00 Temperature 36.3 C Temperature [ Temporal] Pulse, 67 Peripheral Pulse, Peripheral [ Right Pulse Oximetry] Respiratory 16 16 16 Rate Blood Pressure 101/63 Blood Pressure [Left Upper Arm ] O2 Sat by Pulse 98 97 100 Oximetry 03/26/21 03/26/21 03/26/21 16:08 17:00 18:00 Temperature Temperature [ Temporal] Pulse, 79 Peripheral Pulse, Peripheral [ Right Pulse Oximetry] Respiratory 16 14 Rate Blood Pressure 101/80 Blood Pressure [Left Upper Arm ] O2 Sat by Pulse 99 99 98 Oximetry 03/26/21 03/26/21 03/27/21 19:00 20:00 00:00 Temperature Temperature [ 36.9 C 36.6 C Temporal] Pulse, Peripheral Pulse, 77 76 Peripheral [ Right Pulse Oximetry] Respiratory 14 14 14 Rate Blood Pressure Blood Pressure 114/55 L 104/60 [Left Upper Arm ] O2 Sat by Pulse 99 97 98 Oximetry 03/27/21 03/27/21 03/27/21 04:00 05:00 06:30 Temperature Temperature [ Temporal] Pulse, Peripheral Pulse, Peripheral [ Right Pulse Oximetry] Respiratory 14 14 Rate Blood Pressure Blood Pressure 107/80 [Left Upper Arm ] O2 Sat by Pulse 97 97 Oximetry Physical Exam General: Alert and oriented, no acute distress Lungs: Clear to auscultation bilaterally Heart: Regular rate and rhythm Abdomen: Soft, minimal appropriate tenderness, non-distended, fundus midline, nontender and at the umbilicus Incision: Clean, dry and intact, no erythema, bleeding or drainage with Steri- Strips in place Extremities: Trace edema in bilateral lower extremities to mid shins, no calf tenderness bilaterally Labs: Laboratory Tests 03/26/21 03/26/21 03/26/21 Range/Units 05:35 05:35 05:35 WBC 8.67 (3.98-10.04) K/mm3 RBC 4.23 (3.98-5.22) M/mm3 Hgb 11.0 L (11.2-15.7) gm/dl Hct 34.9 (34.1-44.9) % MCV 82.5 D (79.4-94.8) fl MCH 26.0 (25.6-32.2) pg MCHC 31.5 L (32.2-35.5) g/dl RDW Std Deviation 46.3 (36.4-46.3) fL Plt Count 208 (182-369) K/mm3 MPV 10.7 (9.4-12.3) fl Neut % (Auto) 57.9 (34.0-71.1) % Lymph % (Auto) 30.1 (19.3-51.7) % [place] % (Auto) 10.4 (4.7-12.5) % Eos % (Auto) 0.9 (0.7-5.8) Baso % (Auto) 0.2 (0.1-1.2) % Neut # (Auto) 5.02 (1.56-6.13) K/mm3 Lymph # (Auto) 2.61 (1.18-3.74) K/mm3 [place] # (Auto) 0.90 H (0.24-0.36) K/mm3 Eos # (Auto) 0.08 (0.04-0.36) K/mm3 Baso # (Auto) 0.02 (0.01-0.08) K/mm3 RPR Non-reactive (NONREACTIVE) Blood Type O POSITIVE Gel Antibody Screen Negative 03/27/21 Range/Units 05:43 WBC 10.26 H (3.98-10.04) K/mm3 RBC 3.83 L (3.98-5.22) M/mm3 Hgb 10.0 L (11.2-15.7) gm/dl Hct 32.4 L (34.1-44.9) % MCV 84.6 (79.4-94.8) fl MCH 26.1 (25.6-32.2) pg MCHC 30.9 L (32.2-35.5) g/dl RDW Std Deviation 47.2 H (36.4-46.3) fL Plt Count 217 (182-369) K/mm3 MPV 10.7 (9.4-12.3) fl Neut % (Auto) 70.4 (34.0-71.1) % Lymph % (Auto) 18.9 L (19.3-51.7) % [place] % (Auto) 9.0 (4.7-12.5) % Eos % (Auto) 1.2 (0.7-5.8) Baso % (Auto) 0.2 (0.1-1.2) % Neut # (Auto) 7.23 H (1.56-6.13) K/mm3 Lymph # (Auto) 1.94 (1.18-3.74) K/mm3 [place] # (Auto) 0.92 H (0.24-0.36) K/mm3 Eos # (Auto) 0.12 (0.04-0.36) K/mm3 Baso # (Auto) 0.02 (0.01-0.08) K/mm3 RPR (NONREACTIVE) Blood Type Gel Antibody Screen ASSESSMENT: 30-year-old female -0-0-4 s/p repeat section POD #1 for history of section, complicated by obesity PLAN: Doing well Breast-feeding with minimal difficulty. Assist as needed Incision healing well. Continue to keep clean and dry. Lochia minimal. Continue to monitor for appropriate lochia. Continue routine post-operative care Anticipate discharge home tomorrow Phil Sapp MD 10:12 AM 03/27/2021
[2021-03-27] MEDS: Ibuprofen 600 MG Tab PO PRN ×2 (14:43→21:37)
[2021-03-28 06:11] VITALS: BP 123/76; PULSE 84
[2021-03-28] MEDS: Acetaminophen/oxyCODONE 325-5 MG Tab PO PRN (06:58)
[2021-03-28] MEDS: Docusate Sodium 100 MG Cap PO SCH (07:57)
[2021-03-28] MEDS: Prenatal Multivitamin with Calcium/Folic Acid/Iron Tab PO SCH (07:58)
--- NOTE | 2021-03-28 09:08 | PCM.SN.2 ---
- Free Text/Narrative Note: Post Operative Progress Note POD #2 Subjective: Doing well overall. Ambulating without difficulty. Lochia minimal. Voiding without difficulty. Passing flatus. Has not had a bowel movement at this time. Tolerating regular diet without nausea or vomiting. Pain controlled with oral medications. Breast-feeding with minimal difficulty. Objective: Vitals: Vital Signs - 24 hr 03/27/21 03/27/21 03/28/21 14:37 21:34 03:23 Temperature 36.6 C 36.4 C 36.4 C Pulse, 99 79 84 Peripheral Respiratory 16 14 14 Rate Blood Pressure 114/73 115/78 123/76 O2 Sat by Pulse 95 95 97 Oximetry Physical Exam General: Alert and oriented, no acute distress Lungs: Clear to auscultation bilaterally Heart: Regular rate and rhythm Abdomen: Soft, minimal appropriate tenderness, non-distended, fundus midline, nontender and at the umbilicus Incision: Clean, dry and intact, no erythema, bleeding or drainage with Steri- Strips in place Extremities: No edema in bilateral lower extremities, no calf tenderness bilaterally ASSESSMENT: 30-year-old female -0-0-4 s/p repeat section POD #2 for history of section, complicated by obesity PLAN: Doing well Breast-feeding with minimal difficulty. Assist as needed Incision healing well. Continue to keep clean and dry. Lochia minimal. Continue to monitor for appropriate lochia. Continue routine post-operative care Discharge home today Phil Sapp MD 9:06 AM 03/28/2021
--- NOTE | 2021-03-28 09:14 | PCM.DCSUM1 ---
Discharge Summary - Hospital Course Free Text/Narrative:: - General Post-Op/Procedure Note Date of Surgery/Procedure: 03/26/21 Operative Procedure(s): Repeat section Findings: Live male infant delivered in vertex presentation at 07:54. There was 1 nuchal cord that was reduced prior to delivery. weight was 4040 g (8 pounds 14.8 ounces). Apgars were 8 and 9. Grossly normal-appearing uterus, fallopian tubes and ovaries bilaterally. Pre Op Diagnosis: 39 weeks gestational age, history of section Post-Op Diagnosis: Same Anesthesia Technique: Spinal Primary Surgeon: Phil Sapp Anesthesia Provider: Allyson Rojas Chiller Tender: Be Martin Reason Chiller Tender Was Necessary: Patient safety and reduction of morbidity and mortality Role of Chiller Tender: Retraction for visualization Pathology: None Fluid Replacement, Intraop: 1,000 Output, Urine Amount: 300 EBL in mLs: 650 Complications: None Condition: Good Free Text/Narrative:: Procedure in Detail: The patient was seen in room #5 and the risks, benefits and complications were discussed with the patient. The patient desired to proceed with section and appropriate consents were signed. The patient was taken to operating room #1. A Time Out was held and the patient was identified using 2 identifiers and the procedure was confirmed. The patient was given spinal anesthesia and was placed in dorsal supine position with leftward tilt. She was given 2 g Ancef for antibiotic prophylaxis. A Lezama catheter was inserted without difficulty. The patient was prepped and draped in the usual sterile manner. The abdominal skin was tested and the spinal anesthesia was found to be adequate. The skin was injected with 0.5% marcaine for local anesthesia. A Pfannenstiel skin incision was made and carried down through the subcutaneous tissue to the fascia with the scapel. The fascia was nicked in the midline using a scalpel and the fascial incision was extended transversely with Gentile scissors. The inferior aspect of the fascia was grasped with Tristan clamps and tented upwards. The fascia was from the underlying rectus muscle bluntly and sharply with Gentile scissors. Attention was then turned to the superior aspect of the fascia and was grasped using Tristan clamps and tented upwards. The underlying rectus muscle was dissected off bluntly and sharply with Gentile scissors. The peritoneum was identified and entered bluntly. The utero-vesical peritoneal reflection was identified and the peritoneum was incised with [place] scissors and transversely extended. The bladder blade was inserted and the lower uterine segment was identified. A low transverse uterine incision was made sharply with a scalpel and extended laterally bluntly. The infant's head was brought to the uterine incision, the head was delivered and there was notation of a nuchal cord x1 that was reduced. The bladder blade was then removed and the was delivered atraumatically. On 03/26/2021 a live male infant was delivered in vertex position at 07:54, wt of 4040 grams, 8 pounds and 14.5 ounces. APGARS were 8 & 9. The nose and mouth were suctioned with bulb suction, the cord was doubly clamped and cut and infant was transferred to the awaiting presales consultant. The placenta was removed intact and appeared normal with a three vessel cord. The uterus was exteriorized and the uterine cavity was cleaned using lap sponges. The hysterotomy was closed with a running locked suture of 0-Vicryl. A second suture of 0-Vicryl was used to imbricate the hysterotomy. There was a small area of bleeding approximately 25% of the way from the right hysterotomy edge and a single suture of 0 Vicryl in a [id number] suture was placed. This was then hemostatic. Additional pressure was applied to the hysterotomy and several of the small bleeders were noted to be hemostatic. Cautery was used to make the remainder of the small areas with bleeding hemostatic. The hysterotomy was hemostatic at this time. The uterus, tubes and ovaries appeared overall normal. The uterus was then returned into the abdominal cavity. The hysterotomy was noted to remain hemostatic inside the abdominal cavity. The fascia was noted to be hemostatic and the fascia was then reapproximated with running sutures of 0 PDS. The skin was reapproximated using 4-0 Monocryl and Steri-strips were applied over the incision. Instrument, sponge, and needle counts were correct prior to the abdominal closure and at the conclusion of the case. Diagnosis: Stroke: No - Discharge Data Discharge Date: 03/28/21 Discharge Disposition: Home, Self-Care 01 Condition: Good - Referral to Home Health Primary Care Physician: Phil Sapp MD - Discharge Diagnosis/Problem(s) (1) 39 weeks gestation of SNOMED Code(s): 11502261 ICD Code: Z3A.39 - 39 WEEKS GESTATION OF Status: Acute Current Visit: No (2) History of section complicating SNOMED Code(s): 263026229, 772269509 ICD Code: O34.219 - MATERNAL CARE FOR UNSP TYPE SCAR FROM PREVIOUS DEL Status: Acute Current Visit: No (3) delivery delivered SNOMED Code(s): 797056979 ICD Code: O82 - ENCOUNTER FOR DELIVERY WITHOUT INDICATION Status: Acute Current Visit: No - Patient Summary/Data Operative Procedure(s) Performed: Repeat section Complications: None Consults: None Hospital Course: Estella Dobbs was admitted for scheduled repeat section. She was taken back to the OR and given spinal injection for anesthesia. She was given Ancef 2 g IV for antibiotic prophylaxis. She was prepped and draped in the normal fashion. On 03/26/2021 she had a normal delivery of a live male infant at 07:54. Apgars of 8 and 9. Weight of 4040 g (8 pounds 14.8 ounces). She was closed in a normal fashion. There were no complications with the procedure. Please see the operative report for full details. Her post operative course was uneventful. Her pain was well controlled and she had minimal lochia. She was ambulating, tolerating a regular diet and voiding normally. She was passing flatus and has not had a bowel movement. She was breast feeding without difficulty. She was afebrile and her hematocrit was 32.4 on POD #1. She desired to be discharged home on the morning of POD #2. Her blood type is O+. - Patient Instructions Diet: Regular Diet as Tolerated Activity: Apply Ice, As Tolerated, No Lifting Over 20 Pounds Activity, Other: Nothing in the vagina for 6 weeks Driving: Do Not Drive (While taking narcotic medications are having significant pain) Showering/Bathing: May Shower Wound/Incision Care: Keep Operative Site/Wound Site Clean and Dry Notify Provider of: Fever, Increased Pain, Swelling and Redness, Drainage, Nausea and/or Vomiting Other/Special Instructions: Please contact your physician's office if you note any bleeding or pus coming from the abdominal incision. Please contact your physician's office if you have heavy vaginal bleeding enough to soak a pad in less than an hour for several hours. Monitor for any signs of an infection in the breasts with severe pain or redness of the breast. - Discharge Plan *PRESCRIPTION DRUG MONITORING PROGRAM REVIEWED*: Yes *COPY OF PRESCRIPTION DRUG MONITORING REPORT IN PATIENT DOMINGA: No Prescriptions/Med Rec: Acetaminophen/oxyCODONE [Percocet 325-5 MG] 1 - 2 tab PO Q6H PRN #30 tablet PRN Reason: Pain/Fever Home Medications: Home Meds No122/Iron/Folic Acid [ Multi Tablet] 1 tab PO DAILY 11/30/16 [History] Cetirizine [ZyrTEC] 10 mg PO DAILY 11/22/19 [History] Acetaminophen/oxyCODONE [Percocet 325-5 MG] 1 - 2 tab PO Q6H PRN #30 tablet 0 03/28/21 [Rx] Docusate Sodium [Colace] 100 mg PO BID cap 03/28/21 [Rx] Ibuprofen [Motrin] 600 mg PO Q6H PRN tablet 03/28/21 [Rx] Patient Handouts: Care After Delivery Referrals: Phil Sapp MD [Primary Care Provider] - (Follow-up in 2 weeks for routine postoperative appointment or earlier as needed.) - Discharge Summary/Plan Comment DC Time >30 min.: No - Patient Data Vitals - Most Recent: Last Vital Signs Temp 36.4 C 03/28/21 03:23 Pulse 84 03/28/21 03:23 Resp 14 03/28/21 03:23 BP 123/76 03/28/21 03:23 Pulse Ox 97 03/28/21 03:23 Weight - Most Recent: 94.347 kg Med Orders - Current: Current Medications Diphenhydramine HCl (Diphenhydramine 50 Mg/Ml Sdv) 25 mg IVPUSH Q6H PRN PRN Reason: Itching or Nausea Docusate Sodium (Docusate Sodium 100 Mg Cap) 100 mg PO BID WON Last Admin: 03/28/21 07:57 Dose: 100 mg Documented by: Ephedrine Sulfate (Ephedrine 50 Mg/Ml Sdv) 5 mg IVPUSH SEECOMMENT PRN PRN Reason: Other Oxytocin/Lactated Ringer's (Pitocin In Lr 10 Units/1,000 Ml) 10 unit in 1,000 mls @ 100 mls/hr IV .CONTINUOUS WON Ibuprofen (Ibuprofen 600 Mg Tab) 600 mg PO Q6H PRN PRN Reason: mild pain or fever Last Admin: 03/27/21 21:37 Dose: 600 mg Documented by: Magnesium Hydroxide (Magnesium Hydroxide 400 Mg/5 Ml Susp 30 Ml Cup) 30 ml PO BEDTIME PRN PRN Reason: Constipation Naloxone HCl (Naloxone 0.4 Mg/Ml Sdv) 0.1 mg IVPUSH SEECOMMENT PRN PRN Reason: Respiratory Depression Oxycodone/Acetaminophen (Acetaminophen/Oxycodone 325-5 Mg Tab) 1 tab PO Q6H PRN PRN Reason: Pain (moderate 4-6) Last Admin: 03/28/21 06:58 Dose: 1 tab Documented by: Oxycodone/Acetaminophen (Acetaminophen/Oxycodone 325-5 Mg Tab) 2 tab PO Q6H PRN PRN Reason: Pain (severe 7-10) Prenat Multivit/Gallery Manager/Iron/Folic Ac ( Multivitamin With Calcium/Folic Acid/Iron Tab) 1 each PO DAILY WON Last Admin: 03/28/21 07:58 Dose: 1 each Documented by: Discontinued Medications Bupivacaine HCl (Bupivacaine 0.5% 30 Ml Sdv) Confirm Administered Dose 30 ml .ROUTE .STK-MED ONE Stop: 03/26/21 07:15 Last Admin: 03/26/21 07:48 Dose: 20 ml Documented by: Cefazolin Sodium (Cefazolin 1 Gm Vial) Confirm Administered Dose 2 gm .ROUTE .STK-MED ONE Stop: 03/26/21 07:27 Citric Acid/Sodium Citrate (Citric Acid/Sodium Citrate Solution 30 Ml Cup) 30 ml PO ONETIME ONE Stop: 03/26/21 06:01 Last Admin: 03/26/21 07:05 Dose: 30 ml Documented by: Diphenhydramine HCl (Diphenhydramine 50 Mg/Ml Sdv) 50 mg IVPUSH ONETIME ONE Stop: 03/26/21 06:57 Last Admin: 03/26/21 07:06 Dose: 50 mg Documented by: Diphenhydramine HCl (Diphenhydramine 50 Mg/Ml Sdv) 25 mg IVPUSH Q6H PRN PRN Reason: pruritis Ephedrine Sulfate (Ephedrine 50 Mg/Ml Sdv) 5 mg IVPUSH ASDIRECTED PRN PRN Reason: Hypotension Fentanyl (Fentanyl 100 Mcg/2 Ml Sdv) 50 mcg IVPUSH Q20M PRN PRN Reason: Pain Hydromorphone HCl (Hydromorphone 0.5 Mg/0.5 Ml Syringe) 0.5 mg IVPUSH Q10M PRN PRN Reason: Pain (severe 7-10) Cefazolin Sodium/Dextrose 2 gm (/ Premix) 50 mls @ 100 mls/hr IV ONETIME ONE Stop: 03/26/21 06:29 Oxytocin/Lactated Ringer's (Pitocin In Lr 10 Units/1,000 Ml) 10 unit in 1,000 mls @ 100 mls/hr IV ASDIRECTED [facility]; Protocol Lactated Ringer's (Ringers, Lactated) 1,000 mls @ 125 mls/hr IV ASDIRECTED [facility] Last Admin: 03/26/21 07:06 Dose: 125 mls/hr Documented by: Lactated Ringer's (Ringers, Lactated) Confirm Administered Dose 500 mls @ as directed .ROUTE .STK-MED ONE Stop: 03/26/21 07:27 Dextrose/Lactated Ringer's (Dextrose 5%-Lactated Ringers) 1,000 mls @ 125 mls/hr IV ASDIRECTED [facility] Stop: 03/26/21 18:01 Last Admin: 03/26/21 10:13 Dose: 125 mls/hr Documented by: Ketorolac Tromethamine (Ketorolac 30 Mg/Ml Sdv) Confirm Administered Dose 30 mg .ROUTE .STK-MED ONE Stop: 03/26/21 07:27 Ketorolac Tromethamine (Ketorolac 30 Mg/Ml Sdv) 30 mg IVPUSH Q6H [facility] Stop: 03/27/21 02:31 Last Admin: 03/27/21 02:58 Dose: 30 mg Documented by: Metoclopramide HCl (Metoclopramide 10 Mg/2 Ml Sdv) 10 mg IVPUSH ONETIME ONE Stop: 03/26/21 06:01 Last Admin: 03/26/21 07:06 Dose: 10 mg Documented by: Miscellaneous Medication (Phenylephrine Hcl In 0.9% Nacl 1 Mg/10 Ml Syringe) Confirm Administered Dose 1 mg .ROUTE .STK-MED ONE Stop: 03/26/21 07:27 Miscellaneous Medication (Phenylephrine Hcl In 0.9% Nacl 1 Mg/10 Ml Syringe) 0.1 mg IVPUSH Q10M PRN PRN Reason: Hypotension Morphine Sulfate (Morphine Pf 10 Mg/10 Ml Sdv) Confirm Administered Dose 10 mg .ROUTE .STK-MED ONE Stop: 03/26/21 07:28 Ondansetron HCl (Ondansetron 4 Mg/2 Ml Sdv) Confirm Administered Dose 4 mg .ROUTE .STK-MED ONE Stop: 03/26/21 07:27 Ondansetron HCl (Ondansetron 4 Mg/2 Ml Sdv) 4 mg IVPUSH ONETIME PRN PRN Reason: Nausea/Vomiting Oxytocin (Oxytocin 10 Units/1 Ml Sdv) Confirm Administered Dose 20 unit .ROUTE .STK-MED ONE Stop: 03/26/21 07:27 Scopolamine (Scopolamine 1.5 Mg Transdermal Patch) 1.5 mg TRDERM ONETIME ONE Stop: 03/26/21 07:31 Last Admin: 03/26/21 07:21 Dose: 1.5 mg Documented by: Sodium Chloride (Sodium Chloride 0.9% 10 Ml Syringe) 10 ml FLUSH ASDIRECTED PRN PRN Reason: Keep Vein Open
== END 2021-03-28 09:25 | disposition home or self-care (01) | DRG 540 ==
LOC: JD.OB 05:01 → UNDOADMIN 05:01
PROVIDERS: ADMIT Obstetrics & Gynecology; ATTEND Obstetrics & Gynecology
PROC: 10D00Z1 Extraction of Products of Conception, Low, Open Approach (ICD-10-PCS; principal; 2021-03-26)
DX: O34.211 Maternal care for low transverse scar from previous cesarean delivery (principal); Z3A.38 38 weeks gestation of pregnancy; Z37.0 Single live birth; O69.81X0 Labor and delivery complicated by cord around neck, without compression, not applicable or unspecified; O99.214 Obesity complicating childbirth; E66.9 Obesity, unspecified
CPT/HCPCS: 01961; 36415; 59025; 85025; 86592; 86850; 86900; 86901; 94762; A9270-GY; J0690; J1200; J1885; J2270; J2370; J2405; J2590; J2765; J3490; J7120; J7121

== ENCOUNTER 2022-10-25 01:06 | Inpatient (IN) | payer BC ==
[~2022-10-25 01:06] MED LIST changes: -Oxytocin/Lactated Ringers 10 UNIT/1,000 ML BAG IV SCH
[2022-10-25] MEDS ORDERED: Lactated Ringers 1,000 ML IV SCH ×2 (05:30→06:15)
[2022-10-25] MEDS ORDERED: Metoclopramide 10 MG/2 ML SDV IVPUSH ONE ×2 (06:15→06:30)
[2022-10-25] MEDS ORDERED: ceFAZolin 2 GM in Sodium Chloride 0.9% 50 ML IV ONE ×2 (06:15→07:00)
[2022-10-25] MEDS ORDERED: Citric Acid/Sodium Citrate Solution 30 ML Cup PO ONE ×2 (06:15→06:30)
[2022-10-25] MEDS ORDERED: Sodium Chloride 0.9% 10 ML Syringe FLUSH PRN (06:23)
[2022-10-25] MEDS ORDERED: Oxytocin/Lactated Ringers 10 UNIT/1,000 ML BAG IV SCH ×3 (06:30→10:17)
[2022-10-25] MEDS ORDERED: Morphine PF 10 MG/10 ML SDV ONE (06:41)
[2022-10-25] MEDS ORDERED: Ondansetron 4 MG/2 ML SDV ONE (06:43)
[2022-10-25] MEDS ORDERED: Ketorolac 30 MG/ML SDV ONE (06:43)
[2022-10-25] MEDS ORDERED: Bupivacaine 0.5% 30 ML SDV ONE (07:05)
[2022-10-25] MEDS ORDERED: ceFAZolin 2 GM Vial ONE (07:09)
[2022-10-25] MEDS ORDERED: Oxytocin 10 Units/1 ML SDV ONE (08:06)
[2022-10-25] MEDS ORDERED: ePHEDrine 50 MG/ML SDV ONE (08:07)
[2022-10-25] MEDS ORDERED: diphenhydrAMINE 50 MG/ML SDV IVPUSH PRN ×2 (08:28→10:17)
[2022-10-25] MEDS ORDERED: fentaNYL 100 MCG/2 ML SDV IVPUSH PRN (08:28)
[2022-10-25] MEDS ORDERED: Ondansetron 4 MG/2 ML SDV IVPUSH PRN (08:28)
[2022-10-25] MEDS ORDERED: Phenylephrine HCl In 0.9% NaCl 1 MG/10 ML Vial ONE (08:32)
[2022-10-25] MEDS ORDERED: Lactated Ringers 1,000 ML ONE (08:37)
[2022-10-25] MEDS ORDERED: Sodium Chloride 0.9% 10 ML Syringe FLUSH SCH ×2 (09:00)
[2022-10-25] MEDS ORDERED: Dextrose 5%-Lactated Ringers 1,000 ML IV SCH (10:17)
[2022-10-25] MEDS ORDERED: Naloxone 0.4 MG/ML SDV IVPUSH PRN (10:17)
[2022-10-25] MEDS ORDERED: Magnesium Hydroxide 400 MG/5 ML Susp 30 ML Cup PO PRN (10:17)
[2022-10-25] MEDS ORDERED: ePHEDrine 50 MG/ML SDV IVPUSH PRN (10:17)
[2022-10-25] MEDS ORDERED: Acetaminophen/oxyCODONE 325-5 MG Tab PO PRN (10:17)
[2022-10-25] MEDS: Simethicone 80 MG Tab.Chew PO SCH ×3 (15:56→21:12)
[2022-10-25] MEDS: Ketorolac 30 MG/ML SDV IVPUSH SCH ×2 (15:58→21:10)
[2022-10-25] MEDS: Docusate Sodium 100 MG Cap PO SCH (22:05)
[2022-10-26] MEDS: Acetaminophen/oxyCODONE 325-5 MG Tab PO PRN ×3 (06:30→18:07)
[2022-10-26] MEDS ORDERED: Ketorolac 30 MG/ML SDV IVPUSH SCH (09:00)
[2022-10-26] MEDS ORDERED: Prenatal Multivitamin with Calcium/Folic Acid/Iron Tab PO SCH (09:00)
[2022-10-26] MEDS: Simethicone 80 MG Tab.Chew PO SCH ×4 (09:10→20:45)
[2022-10-26] MEDS: Docusate Sodium 100 MG Cap PO SCH ×2 (09:11→20:45)
[2022-10-26] MEDS: Ketorolac 30 MG/ML SDV IVPUSH SCH (14:25)
[2022-10-26] MEDS: Ibuprofen 600 MG Tab PO PRN ×2 (14:59→20:48)
[2022-10-27] MEDS: Acetaminophen/oxyCODONE 325-5 MG Tab PO PRN (00:02)
[2022-10-27] MEDS: Ibuprofen 600 MG Tab PO PRN (06:58)
[2022-10-27 08:41] VITALS: BP 131/91; PULSE 98
== END 2022-10-27 09:14 | disposition home or self-care (01) | DRG 540 ==
LOC: JD.OB 05:15
PROVIDERS: ADMIT Obstetrics & Gynecology; ATTEND Obstetrics & Gynecology
PROC: 10D00Z1 Extraction of Products of Conception, Low, Open Approach (ICD-10-PCS; principal; 2022-10-25)
DX: O34.211 Maternal care for low transverse scar from previous cesarean delivery (principal); Z37.0 Single live birth; Z3A.39 39 weeks gestation of pregnancy; O99.214 Obesity complicating childbirth; O32.1XX0 Maternal care for breech presentation, not applicable or unspecified; O67.9 Intrapartum hemorrhage, unspecified; Z88.0 Allergy status to penicillin; Z88.8 Allergy status to other drugs, medicaments and biological substances; Z79.899 Other long term (current) drug therapy
CPT/HCPCS: 36415; 59025; 85025; 86592; 86850; 86900; 86901; A9270-GY; J0690; J1200; J1885; J2274; J2405; J2590; J2765; J3490; J7120; J7121